=== PATIENT | male | born 1960 | race American Indian/Alaskan Native ===

== ENCOUNTER 2020-08-22 06:24 | Day surgery (SDC) | payer BC ==
[2020-08-22] MEDS ORDERED: SODIUM CHLORIDE 0.9% 500 ML 500 ML IV SCH (07:00)
[2020-08-22 07:13] LABS: Basophils % (Auto) 0.5 % (0.0-1.8); Eosinophils # (Auto) 0.1 K/mm3 (0.0-0.4); Eosinophils % (Auto) 1.6 % (0.0-4.3); Hematocrit 43.1 % (35.5-45.6); Hemoglobin 14.6 gm/dl (11.8-15.2); Lymphocytes # (Auto) 1.3 K/mm3 (1.2-5.4); Mean Corpuscular HGB Conc 34 % (32-34); Mean Corpuscular Volume 96 fl (84-94); Monocytes # (Auto) 0.6 K/mm3 (0.0-0.8); Monocytes % (Auto) 8.7 % (0.0-7.3); Platelet Count 262 K/mm3 (140-440); Red Cell Distribution Width 15.2 % (13.2-15.2)
[2020-08-22 07:22] LABS: INR 0.99 (0.87-1.13)
[2020-08-22 07:23] LABS: Partial Thromboplastin Time 27.3 Sec. (24.2-36.6)
[2020-08-22 07:26] LABS: Blood Urea Nitrogen 12 mg/dL (9-20); Calcium 8.9 mg/dL (8.4-10.2); Hemolysis Index 0
[2020-08-22 07:41] LABS: BUN/Creatinine Ratio 20
[2020-08-22] MEDS ORDERED: MIDAZOLAM 2 MG/2 ML INJ ONE (08:17)
[2020-08-22] MEDS ORDERED: HEPARIN 10,000 UNITS/10 ML VIAL ONE (08:17)
[2020-08-22] MEDS ORDERED: HEPARIN/NS 5000 UNIT/500ML 1,000 ML IR ONE (08:17)
[2020-08-22] MEDS ORDERED: fentaNYL 100 MCG/2 ML INJ ONE (08:18)
[2020-08-22] MEDS ORDERED: VERAPAMIL 5 MG/2 ML INJ ONE (08:18)
[2020-08-22] MEDS ORDERED: LIDOCAINE (2%) 20 MG/1 ML VIAL 20 ML MDV INFILTRATI ONE (08:18)
[2020-08-22] MEDS ORDERED: NITROGLYCERIN SYRINGE 3 ML ONE (08:18)
[2020-08-22] MEDS ORDERED: NITROGLYCERIN 600 MCG/3 ML SYRINGE ART-SHEATH ONE (09:17)
[2020-08-22] MEDS ORDERED: HYDROcodone/ACETAMINOPHEN 5-325 MG TAB PO PRN (09:53)
--- NOTE | 2020-08-22 09:55 | Short Stay Summary ---
Short Stay Documentation Date of service: 08/22/20 - History H&P: obtained from office - Allergies and Medications Current Medications: Allergies Inzjahz-Fmy-Onw Reductase Inhibitor Allergy (Verified 08/22/20 07:17) Headache Home Medications Medication Instructions Recorded Confirmed Last Taken Type Amlodipine Besylate/Benazepril 1 each PO DAILY 08/22/20 08/22/20 08/21/20 History [Amlodipine-Benazepril 10-40 mg] 1 tab Amoxicillin/Potassium Clav 1 each PO DAILY 08/22/20 08/22/20 Unknown History [Amox-Clav 250-125 mg Tablet] Aspirin [Aspirin BABY CHEW TAB] 81 mg PO DAILY 08/22/20 08/22/20 08/21/20 History 1 tab Dapagliflozin Propanediol [Farxiga] 1 tab PO DAILY 08/22/20 08/22/20 08/21/20 History 1 tab Docosahexanoic Acid [Algal [place]-3 200 mg PO DAILY 08/22/20 08/22/20 08/21/20 History Dha] 1 tab Gabapentin [Neurontin] 300 mg PO BID 08/22/20 08/22/20 08/21/20 History 1 tab Glimepiride [Amaryl] 4 mg PO QAM 08/22/20 08/22/20 08/21/20 History 1 tab Latanoprost 0.005% [Xalatan 0.005%] 1 drop OP QPM 08/22/20 08/22/20 08/21/20 History 2 drops Sitagliptin Phos/Metformin HCl 1 each PO DAILY 08/22/20 08/22/20 08/20/20 History [Janumet 50-1,000 mg Tablet] 1 tab cilostazoL [Pletal] 100 mg PO BID 08/22/20 08/22/20 08/21/20 History 1 tab gemfibroziL [Lopid] 600 mg PO BID 08/22/20 08/22/20 Unknown History hydroCHLOROthiazide [HCTZ] 25 mg PO QDAY 08/22/20 08/22/20 08/21/20 History 1 tab Active Medications Sodium Chloride (Nacl 0.9% 500 Ml) 500 mls @ 50 mls/hr IV DIRECT LISA Stop: 08/22/20 16:59 Last Admin: 08/22/20 07:58 Dose: 50 mls/hr Documented by: - Brief post op/procedure progress note Date of procedure: 08/22/20 Pre-op diagnosis: claudication and left foot pain Post-op diagnosis: same Procedure: see report Anesthesia: local Estimated blood loss: minimal Pathology: none - Disposition Condition at discharge: Good Disposition: DC-01 TO HOME OR SELFCARE - Discharge Diagnoses (1) PAD (peripheral artery disease) Status: Chronic (2) Smoker Status: Chronic (3) Hyperlipemia, mixed Status: Chronic (4) Hypertension Status: Chronic Qualifiers: Hypertension type: essential hypertension Qualified Code(s): I10 - Essential (primary) hypertension Short Stay Discharge Plan Activity: advance as tolerated Diet: low fat, low cholesterol Wound: keep clean and dry Special Instructions: smoking cessation Follow up with: RAIMUNDO ALFARO MD [Primary Care Provider] - 7 Days
[2020-08-22] MEDS ORDERED: traMADol 50 MG TAB PO PRN (10:30)
[2020-08-22 12:38] VITALS: BP 138/89
--- NOTE | 2020-08-22 13:28 | Cardiac Catherization Report ---
Peripheral angiogram DATE OF SERVICE: 08/22/2020 DATE OF SERVICE: 08/22/2020. INDICATION: The patient is a 60-year-old -[place] gentleman who is a smoker, hyperlipidemia, peripheral vascular disease with left foot pain at rest and with minimal exertion, is her for peripheral angiogram and iliac runoffs with a catheter placement. The patient was done with some moderate sedation, started 09:14, finished at 09:35, which 19 minutes of moderate sedation. DESCRIPTION OF PROCEDURE: Procedure was done via the right radial artery, sterile technique, local anesthesia. A 6 Australian radial sheath was inserted. A pigtail catheter was placed in the abdominal aorta and runoff was done which revealed bilateral renal arteries patent, distal abdominal aorta patent, bilateral common iliacs patent. Right internal and external iliacs patent, right SFA proximal patent, mid to distal calcified 50% lesions, popliteal patent, anterior tibial and posterior tibial both 100%, proximal peroneal calcified 70%, but medium caliber vessel. Left common iliac patent, left internal iliac patent, left external iliac calcified 80% lesion up at the [employer] PROJECT [employer]GER, proximal SFA focal calcified 50%, mid to distal patent and then becomes 80% calcified focal lesion. Popliteal diffuse disease with areas of 90%, proximal anterior tibial is 90%, distal is 100%, peroneal and posterior tibial both 100%. Placed a multipurpose catheter into the right iliac system, did multiple views confirming angiographic. Placed a multipurpose catheter in the left common iliac. Multiple views confirming angiographic result. Catheter was removed over a wire. A 6 Australian radial sheath was discontinued. Radial band applied. No hematoma. No bleeding. SUMMARY OF FINDINGS: 1. Bilateral renal arteries patent, distal abdominal aorta patent, bilateral common iliacs patent. Right external iliac, internal iliac and common femoral artery patent. Right SFA diffuse 50% anterior tibial and posterior tibial 100%. Right popliteal patent. Right peroneal proximal 70% calcified. Rest of vessels patent, medium caliber. 2. Left internal iliac and left distal external iliac and ENV[employer] PROJECT MANAGER has 80% lesion calcified, proximal SFA 50%. Profunda patent. Mid SFA patent. Distal focal 80%. Popliteal has diffuse disease with 90% with anterior tibial proximal 90%, distal 100% and both posterior tibial and peroneal 100%. Anterior tibial has a proximal 90% and distal 100%. 3. The patient will be referred for vascular surgery for possible local atherectomy versus shockwave. Discussed this with the patient in detail. TID: [id number] RECEIPT: [id number] RAQUEL/[facility] RICE
== END 2020-08-22 13:06 | disposition home or self-care (01) ==
LOC: CATHLABREC 06:24
PROVIDERS: ATTEND Internal Medicine
DX: I70.213 Atherosclerosis of native arteries of extremities with intermittent claudication, bilateral legs (principal); E11.51 Type 2 diabetes mellitus with diabetic peripheral angiopathy without gangrene; I10 Essential (primary) hypertension; E78.2 Mixed hyperlipidemia; F17.210 Nicotine dependence, cigarettes, uncomplicated; Z79.899 Other long term (current) drug therapy; Z88.8 Allergy status to other drugs, medicaments and biological substances; Z79.82 Long term (current) use of aspirin; Z98.890 Other specified postprocedural states
CPT/HCPCS: 36245; 36415; 75630; 80048; 85025; 85610; 85730; 99156; C1894; J1644; J2250; J3010; J7040; 36246; Q9967

== ENCOUNTER 2020-09-03 09:19 | Day surgery (SDC) | payer BC ==
[2020-09-03 17:49] VITALS: BP 152/90
== END 2020-09-03 18:02 | disposition home or self-care (01) ==
LOC: CATHLABREC 09:19
PROVIDERS: ATTEND Surgery Vascular Surgery
DX: I70.222 Atherosclerosis of native arteries of extremities with rest pain, left leg (principal); E11.51 Type 2 diabetes mellitus with diabetic peripheral angiopathy without gangrene; F17.210 Nicotine dependence, cigarettes, uncomplicated; E78.2 Mixed hyperlipidemia; I10 Essential (primary) hypertension; H40.9 Unspecified glaucoma; Z98.890 Other specified postprocedural states; Z79.899 Other long term (current) drug therapy; Z88.8 Allergy status to other drugs, medicaments and biological substances; Z83.3 Family history of diabetes mellitus; Z79.82 Long term (current) use of aspirin; Z82.49 Family history of ischemic heart disease and other diseases of the circulatory system
CPT/HCPCS: 36415; 37225; 37229; 75710; 76937; 80048; 85025; 85610; 85730; 99156; 99157; C1724; C1725; C1760; C1769; C1887; C2623; J0360; J1200; J1644; J2250; J3010; J7030; J7040; Q9967

== ENCOUNTER 2020-09-12 10:41 | Day surgery (SDC) | payer BC ==
[2020-09-12 11:31] LABS: Hematocrit 42.4 % (35.5-45.6); Hemoglobin 14.7 gm/dl (11.8-15.2); Mean Corpuscular HGB Conc 35 % (32-34); Mean Corpuscular Volume 97 fl (84-94); Platelet Count 287 K/mm3 (140-440); Red Cell Distribution Width 15.2 % (13.2-15.2)
[2020-09-12 11:41] LABS: INR 1.09 (0.87-1.13)
[2020-09-12 11:42] LABS: Partial Thromboplastin Time 32.1 Sec. (24.2-36.6)
[2020-09-12 11:48] LABS: Blood Urea Nitrogen 12 mg/dL (9-20); Calcium 9.7 mg/dL (8.4-10.2); Hemolysis Index 4
[2020-09-12 11:53] LABS: BUN/Creatinine Ratio 20
[2020-09-12] MEDS ORDERED: SODIUM CHLORIDE 0.9% 500 ML 500 ML IV SCH (12:00)
[2020-09-12] MEDS ORDERED: ceFAZolin/STERILE WATER 2 GM/20 ML SYRINGE IV NR (12:00)
[2020-09-12] MEDS ORDERED: HEPARIN/NS 5000 UNIT/500ML 1,000 ML IR ONE ×2 (12:14→12:16)
[2020-09-12] MEDS ORDERED: VERAPAMIL 5 MG/2 ML INJ ONE (12:15)
[2020-09-12] MEDS ORDERED: NITROGLYCERIN SYRINGE 3 ML ONE ×3 (12:15→16:43)
[2020-09-12] MEDS ORDERED: ceFAZolin/Water 2 GM/20 ML 2 GM/20 ML SYRINGE IV ONE (12:16)
[2020-09-12] MEDS: fentaNYL 100 MCG/2 ML INJ ONE ×4 (14:50→15:46)
[2020-09-12] MEDS: MIDAZOLAM 2 MG/2 ML INJ ONE ×4 (14:50→16:12)
[2020-09-12] MEDS: LIDOCAINE (2%) 20 MG/1 ML VIAL 20 ML MDV INFILTRATI ONE ×3 (14:56→15:12)
[2020-09-12] MEDS: diphenhydrAMINE 50 MG/ML VIAL ONE ×2 (15:15→15:25)
[2020-09-12] MEDS: HEPARIN 10,000 UNITS/10 ML VIAL ONE ×2 (15:24→16:13)
[2020-09-12] MEDS ORDERED: NITROGLYCERIN 600 MCG/3 ML SYRINGE ART-SHEATH ONE ×3 (16:02→16:45)
[2020-09-12] MEDS: HYDROmorphone 1 MG/1 ML INJ ONE ×2 (16:12→16:30)
[2020-09-12] MEDS ORDERED: ALTEPLASE 2 MG INJ ONE (16:41)
[2020-09-12] MEDS ORDERED: WATER FOR INJ Sterile (PF) 10 ML ONE (16:41)
--- NOTE | 2020-09-12 16:57 | Short Stay Summary ---
Short Stay Documentation Date of service: 09/12/20 Narrative H&P: See H&P - History H&P: obtained from office - Allergies and Medications Current Medications: Allergies Yhkgzjj-Rub-Bji Reductase Inhibitor Allergy (Verified 08/22/20 07:17) Headache Home Medications Medication Instructions Recorded Confirmed Last Taken Type Amlodipine Besylate/Benazepril 1 each PO DAILY 08/22/20 09/12/20 09/11/20 Hi story [Amlodipine-Benazepril 10-40 mg] Aspirin [Aspirin BABY CHEW TAB] 81 mg PO DAILY 08/22/20 09/12/20 09/11/20 History Dapagliflozin Propanediol [Farxiga] 1 tab PO DAILY 08/22/20 09/12/20 09/11/20 History Docosahexanoic Acid [Algal [place]-3 200 mg PO DAILY 08/22/20 09/12/20 09/11/20 History Dha] Gabapentin 300 mg PO BID 08/22/20 09/12/20 09/11/20 History Glimepiride [Amaryl] 4 mg PO QAM 08/22/20 09/12/20 09/11/20 History Latanoprost 0.005% 1 drop OP QPM 08/22/20 09/12/20 09/11/20 History Sitagliptin Phos/Metformin HCl 1 each PO DAILY 08/22/20 09/12/20 09/11/20 Histor y [Janumet 50-1,000 mg Tablet] gemfibroziL [Lopid] 600 mg PO BID 08/22/20 09/12/20 09/11/20 History hydroCHLOROthiazide [HCTZ] 25 mg PO QDAY 08/22/20 09/12/20 09/11/20 History Clopidogrel [Plavix] 75 mg PO QDAY #90 tablet 09/03/20 09/12/20 09/11/20 Rx Rivaroxaban [Xarelto] 2.5 mg PO BID #180 tablet 09/03/20 09/12/20 09/11/20 Rx Active Medications Cefazolin Sodium (Cefazolin/Sterile Water 2 Gm/20 Ml Syringe) 2 gm IV PREOP NR Stop: 09/12/20 20:00 Last Admin: 09/12/20 14:50 Dose: 2 gm Documented by: Sodium Chloride (Nacl 0.9% 500 Ml) 500 mls @ 50 mls/hr IV DIRECT LISA Last Admin: 09/12/20 11:42 Dose: 50 mls/hr Documented by: - Brief post op/procedure progress note Date of procedure: 09/12/20 Pre-op diagnosis: Peripheral Vascular Disease with Left Leg Critical Limb Ischemia Post-op diagnosis: same Procedure: 1. Ultrasound-Guided Access Right Common Femoral Artery 2. Diagnostic Left Lower Extremity Angiogram (The Patient Had a Clinical Change) 3. Angioplasty of Left Anterior Tibial Artery and Medial Plantar Artery with 2.0 x 100 Angiosculpt Balloon and 3.0-2.5 x 210 Nanocross Balloon 4. Injection of a total of 1800 mcg of Nitroglycerin and 4 mg of TPA into the Left Foot 5. Closure of Right Femoral Arteriotomy with 6 Sami Angio-Seal 6. Radiologic Supervision with Interpretation 7. Monitored Moderate Sedation (Total Anesthesia Time: 120 Minutes) Anesthesia: other (Monitored Moderate Sedation) Surgeon: LUKASZ JARAMILLO Estimated blood loss: minimal Pathology: none Condition: stable - Disposition Condition at discharge: Good Disposition: DC-01 TO HOME OR SELFCARE Short Stay Discharge Plan Activity: other (No strenuous activity for 48 hours) Wound: remove dressing (48 hours), other (Okay to shower and wash the wound with soap and water but do not soak in water for 2 weeks.) Follow up with: LUKASZ JARAMILLO MD [Staff Physician] - 14 Days Prescriptions: Oxycodone HCl/Acetaminophen [Percocet 7.5/325 mg] 1 each PO Q6HR PRN #30 tablet PRN Reason: Pain cilostazoL [Pletal] 100 mg PO BID #180 tablet Pantoprazole [Protonix] 40 mg PO QDAY #90 tablet
--- NOTE | 2020-09-12 17:01 | Operative Report ---
Operative Report Operative Report: Date of Procedure: 09/12/2020 Pre-operative Diagnosis: Peripheral Vascular Disease with Left Lower Extremity C ritical Limb Ischemia Post-operative Diagnosis: Same Procedure(s): 1. Ultrasound-Guided Access Right Common Femoral Artery 2. Diagnostic Left Lower Extremity Angiogram (The Patient Had a Clinical Change) 3. Angioplasty of Left Anterior Tibial Artery and Medial Plantar Artery with 2.0 x 100 Angiosculpt Balloon and 3.0-2.5 x 210 Nanocross Balloon 4. Injection of a total of 1800 mcg of Nitroglycerin and 4 mg of TPA into the Left Foot 5. Closure of Right Femoral Arteriotomy with 6 [place] Angio-Seal 6. Radiologic Supervision with Interpretation 7. Monitored Moderate Sedation (Total Anesthesia Time: 120 Minutes) Surgeon: Benedicto Osman M.D. 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 Yet previous intervention of his left foot with temporary relief for approximately 1 week however his symptoms of rest pain returned. The patient continues to smoke which is likely contributed to it. He is in need of a diagnostic angiogram and possible further intervention. He was given the risk, benefits, and alternative procedures and consented to the procedure. Angiographic Findings: The diagnostic left lower extremity angiogram revealed that the left common iliac artery, hypogastric artery, and external iliac artery were patent without evidence of flow-limiting stenosis. There was a heavily calcified plaque within the common femoral artery however this was not flow-limiting. The SFA and profunda appeared to be patent without evidence of significant flow-limiting stenosis. The popliteal artery was patent without evidence of significant flow- limiting stenosis. There was one-vessel runoff to the anterior tibial artery which was patent to the level of the medial malleolus were occluded with what appeared to be a small amount of thrombus within the distal artery. There was no evidence of reconstitution in the dorsalis pedis artery. The posterior tibial artery was occluded in the foot as well. Flow within the foot was provided through small collateral branches. After intervention the anterior tibial artery was patent with flow into the medial plantar artery with approximately 30% residual stenosis in the mid foot. The artery did provide significant collateral flow into the entire foot with some reflux of contrast into what appeared to be a segment of the dorsalis pedis artery. Description of Procedure: The patient was brought to the Elevator Starter and laid in supine position. After a timeout was performed his right groin and left foot were prepped and draped in normal sterile fashion. Initially I made attempts to access the posterior tibial artery, near the medial malleolus, in retrograde fashion however this was unsuccessful. I then decided to treat the patient and antegrade fashion. Ultrasound was used to identify the right common femoral artery and confirm patency. Once patency was confirmed I anesthetized the overlying skin and soft tissue with lidocaine. I made a small stab stab incision with an 11 blade and then used a curved hemostat with ultrasound guidance to bluntly dissect down to the anterior surface of the right common femoral artery. An 18-gauge access needle was used ultrasound guidance into the right common femoral artery and a 0.035 Bentson wire was advanced to the aorta. I then removed the needle and placed a 5 [place] sheath by Seldinger technique. An Omni Flush catheter was then advanced into the aorta and the catheter and wire were advanced up and over the bifurcation and a diagnostic left lower extremity angiogram was performed with the previously described findings. I advanced a 0.035 advantage wire into the below-knee popliteal artery and then exchanged the 5 Bol[place]ian sheath for a 6 [place]ian 90 cm destination sheath with the previously described findings. I made attempts to recannulate the occluded posterior tibial artery without success so I advanced a Navicross catheter and 0.018 V18 wire into the distal anterior tibial artery. I attempted to recannulate the dorsalis pedis artery however this perforated so I advanced the catheter and wire into the medial plantar artery and was eventually able to advance the wire into the distal foot. I exchanged the V 18 wire for 0.014 Choice PT wire and then performed angioplasty of the medial plantar artery and distal anterior tibial artery with a 2.0 x 100 Angiosculpt Balloon. I followed this with angioplasty of the arteries with the 3.0-2.5 x 210 Nanocross Balloon. This resulted in perforation of the distal anterior tibial artery which was treated with inflation of the balloon for approximately 5 minutes which controlled the bleeding. There was also some evidence of thrombus in the distal anterior tibial artery which I treated with 4 mg of TPA. I also injected a total of 1800 mcg of nitroglycerin into the foot to break any spasm. The final angiogram revealed there was flow through the distal anterior tibial artery and into the foot through the medial plantar artery and multiple collaterals. The flow was somewhat sluggish however secondary to approximately 30% residual stenosis in the medial plantar artery however the artery was patent. At this point there is no additional arteries that could be open to provide flow to the patient's foot. I removed the Choice PT wire and pulled the sheath back into the right external iliac artery. I advanced the Bentson wire to the aorta and after removing the sheath used a 6 [place] Angio-Seal for closure. A sterile dressing was then applied to the right groin entry site and the patient was transported to the recovery area in stable condition.
[2020-09-12] MEDS ORDERED: oxyCODONE /ACETAMINOPHEN 5-325MG TAB PO PRN (17:02)
[2020-09-12] MEDS ORDERED: CILOSTAZOL 100 MG TAB PO ONE (18:00)
[2020-09-12 18:36] VITALS: BP 123/71
== END 2020-09-12 18:54 | disposition home or self-care (01) ==
LOC: CATHLABREC 10:41
PROVIDERS: ATTEND Surgery Vascular Surgery
DX: I70.222 Atherosclerosis of native arteries of extremities with rest pain, left leg (principal); E11.51 Type 2 diabetes mellitus with diabetic peripheral angiopathy without gangrene; F17.210 Nicotine dependence, cigarettes, uncomplicated; E78.2 Mixed hyperlipidemia; I10 Essential (primary) hypertension; H40.9 Unspecified glaucoma; Z88.8 Allergy status to other drugs, medicaments and biological substances; Z79.899 Other long term (current) drug therapy; Z98.890 Other specified postprocedural states; Z82.49 Family history of ischemic heart disease and other diseases of the circulatory system
CPT/HCPCS: 36415; 37228; 76937; 80048; 85027; 85610; 85730; 99156; 99157; C1725; C1760; C1769; C1887; J0690; J1170; J1200; J1644; J2250; J2997; J3010; J7040; Q9967

== ENCOUNTER 2021-01-07 09:17 | Inpatient (IN) | payer BC ==
[~2021-01-07 09:17] MED LIST: ACETAMINOPHEN 500 MG TAB PO SCH; GABAPENTIN 300 MG CAP PO NR; ceFAZolin/STERILE WATER 2 GM/20 ML SYRINGE IV NR
[2021-01-07 10:44] LABS: Hematocrit 24.6 % (35.5-45.6); Mean Corpuscular HGB Conc 33 % (32-34); Mean Corpuscular Volume 79 fl (84-94); Platelet Count 511 K/mm3 (140-440); Red Blood Count 3.12 M/mm3 (3.65-5.03); Red Cell Distribution Width 18.5 % (13.2-15.2)
[2021-01-07 10:59] LABS: Blood Urea Nitrogen 7 mg/dL (9-20); Calcium 9.6 mg/dL (8.4-10.2); Hemolysis Index 27
[2021-01-07] MEDS: LACTATED RINGERS 1,000 ML IV SCH ×2 (11:00→19:18)
[2021-01-07 11:03] LABS: BUN/Creatinine Ratio 23
[2021-01-07] MEDS: MIDAZOLAM 2 MG/2 ML INJ IV NR ×2 (11:03→12:11)
[2021-01-07] MEDS: HYDROmorphone 1 MG/1 ML INJ IV SCH ×3 (11:05→19:17)
--- NOTE | 2021-01-07 11:05 | Anesthesia Consultation ---
Anesthesia Consult and Med Hx Date of service: 01/07/21 - Airway Anesthetic Teeth Evaluation: Edentulous ROM Head & Neck: Adequate Mental/Hyoid Distance: Adequate Mallampati Class: Class II Intubation Access Assessment: Probably Good - Pre-Operative Health Status ASA Pre-Surgery Classification: ASA3 Proposed Anesthetic Plan: General - Pulmonary Hx Smoking: Yes (1-2 cigs/day, none in the last 1 week) Hx Respiratory Symptoms: No Hx Sleep Apnea: No - Cardiovascular System Hx Hypertension: Yes (took amlodipine/benazepril today) Hx Heart Attack/AMI: No Hx Percutaneous Transluminal Coronary Angioplasty (PTCA): No Hx Cardia Arrhythmia: No Hx Peripheral Vascular Disease: Yes (last dose xarelto 01/06/21) - Central Nervous System CVA: No - Endocrine Hx Renal Disease: No Hx Liver Disease: No Hx Non-Insulin Dependent Diabetes: Yes Hx Thyroid Disease: No - Hematic Hx Anemia: Yes - Other Systems Hx Obesity: No - Additional Comments Anesthesia Medical History Comments: No prior GA. No FHx anesthetic complications. Had ST and TTE 05/2020 which showed normal EF and no ischemia.
--- NOTE | 2021-01-07 11:06 | Anesthesia Day of Surgery ---
Anesthesia Day of Surgery - Day of Surgery Patient Examined: Yes Patient H&P Reviewed: Yes Patient is NPO: Yes
[2021-01-07] MEDS ORDERED: ONDANSETRON 4 MG/2 ML INJ IV PRN (11:30)
[2021-01-07] MEDS ORDERED: HYDROmorphone 1 MG/1 ML INJ IV PRN ×2 (11:30→15:59)
[2021-01-07] MEDS ORDERED: BUPIVACAINE/PF (0.25%) 2.5 MG/ML 30 ML VIAL INFILTRATI ONE ×2 (14:10→15:13)
[2021-01-07] MEDS ORDERED: LIDOCAINE MPF (2%) 20 MG/1 ML VIAL 5 ML ONE (14:13)
[2021-01-07] MEDS ORDERED: fentaNYL 100 MCG/2 ML INJ ONE (14:14)
[2021-01-07] MEDS ORDERED: propofoL 200 MG/20 ML VIAL IV ONE (14:14)
[2021-01-07] MEDS ORDERED: SODIUM CHLORIDE 0.9% IRR 1,500 ML BOTTLE IR ONE (15:13)
[2021-01-07] MEDS ORDERED: HYDROmorphone 1 MG/1 ML INJ ONE (15:13)
[2021-01-07] MEDS ORDERED: KETAMINE/STERILE WATER 50 MG/ML SYRINGE ONE (15:19)
[2021-01-07] MEDS ORDERED: ONDANSETRON 4 MG/2 ML INJ ONE (15:57)
[2021-01-07] MEDS ORDERED: ACETAMINOPHEN 325 MG TAB PO PRN (15:59)
[2021-01-07] MEDS ORDERED: KETOROLAC 30 MG/1 ML INJ IV PRN (15:59)
--- NOTE | 2021-01-07 16:25 | Operative Report ---
Operative Report Operative Report: Date of procedure: 01/07/2021 Pre-operative diagnosis: Peripheral Vascular Disease with Left Lower Extremity G lorena Post-operative diagnosis: Same Procedure(s): Left Below Knee Amputation Surgeon: Benedicto Osman MD Health Plan Advisor: None Anesthesia: General Endotracheal Anesthesia EBL: 100 mL Counts: Correct Complications: None Condition: Stable Findings: All remaining tissue was healthy and viable Specimen: Left Leg Sent to Pathology Indication: The patient is a 60-year-old male with a history of peripheral vascular disease and tobacco abuse who has had endovascular intervention on his left lower extremity to treat critical limb ischemia. Despite intervention he continued to smoke and had deterioration of his ischemia which progressed to a nonsalvageable foot. He is in need of a left below-knee amputation to treat his rest pain as well as gangrene of his foot. He was given the risk, benefits, and alternative procedures and consented to the procedure. Description of Procedure: The patient was brought to the operating room and laid in supine position after general endotracheal anesthesia the patient's left leg was prepped and draped in normal sterile fashion. A transverse incision was then created approximately 3 fingerbreadths below the tibial tuberosity and carried the incision down distally to create a posterior flap, using a 10 blade. Electrocautery was then used to divide the muscle down to the tibia and then down to the fibula. I then used a periosteal elevator to elevate the periosteum on the tibia approximately 2 cm above the incision and then I used an oscillating saw to divide the tibia. I then used a double-action bone cutter to divide the fibula approximately 2 cm above the tibia. I divided the remainder of the soft tissue using electrocautery and passed the specimen off. I identified the neurovascular bundle and ligated both the vein and artery using 0 silk stick ties. I then used 0 silk to perform high ligation of the nerve. I achieved hemostasis using electrocautery and direct pressure. Once hemostasis was achieved I used a rasps to smooth the tibia and then copiously irrigated the wound with saline. I anesthetized the wound using 0.5% Marcaine. I then closed the wound in 2 layers using 0 Vicryl to reapproximate the fascia and vicki to close the skin. I dressed the wound with Xeroform gauze, fluffs, ABDs, Kerlix, and an Spenser bandage. I placed an appropriately sized knee immobilizer. The patient tolerated the procedure well all sponge needle and instrument counts were the patient was taken to recovery in stable condition.
--- NOTE | 2021-01-07 16:53 | Post Anesthesia Evaluation ---
- Post Anesthesia Evaluation Patient Participated: Yes Airway Patent: Yes Stable Respiratory Function: Yes Nausea/Vomiting: No Temp > 96.8F: Yes Pain Manageable: Yes Adequeate Hydration: Yes Anesthesia Complications: No
[2021-01-07] MEDS: INSULIN LISPRO 100 UNIT/ML SUB-Q SCH ×2 (17:30→22:34)
[2021-01-07] MEDS: metFORMIN 500 MG TAB PO SCH (20:03)
[2021-01-07] MEDS ORDERED: RIVAROXABAN 2.5 MG PO SCH (22:00)
[2021-01-07] MEDS: RIVAROXABAN 10 MG TAB PO SCH (22:33)
[2021-01-07] MEDS: GEMFIBROZIL 600 MG TAB PO SCH (22:33)
[2021-01-07] MEDS: GABAPENTIN 300 MG CAP PO SCH (22:34)
[2021-01-07] MEDS: CILOSTAZOL 100 MG TAB PO SCH (22:34)
[2021-01-07] MEDS: oxyCODONE /ACETAMINOPHEN 5-325MG TAB PO PRN (22:35)
[2021-01-07] MEDS: LATANOPROST 0.005% OPHTH SOLN 2.5 ML OU SCH (22:40)
[2021-01-07] MEDS: ceFAZolin/NS 1 GM/50 ML 1 GM/50 ML BAG IV SCH (22:58)
[2021-01-08 06:24] LABS: Hematocrit 25.1 % (35.5-45.6); Hemoglobin 7.9 gm/dl (11.8-15.2)
[2021-01-08] MEDS: ceFAZolin/NS 1 GM/50 ML 1 GM/50 ML BAG IV SCH (06:24)
[2021-01-08] MEDS: oxyCODONE /ACETAMINOPHEN 5-325MG TAB PO PRN ×3 (06:29→21:37)
[2021-01-08 06:57] LABS: Blood Urea Nitrogen 6 mg/dL (9-20); Hemolysis Index 8
[2021-01-08 07:27] LABS: BUN/Creatinine Ratio 20
[2021-01-08] MEDS: INSULIN LISPRO 100 UNIT/ML SUB-Q SCH ×4 (08:00→21:38)
[2021-01-08] MEDS ORDERED: NON-FORMULARY EACH (Amlodipine Besylate/Benazepril [Amlodipine-Benazepril 10-40 Mg] 1 EACH PO SCH (10:00)
[2021-01-08] MEDS ORDERED: DOCOSAHEXANOIC ACID 200 MG PO SCH (10:00)
[2021-01-08] MEDS ORDERED: NON-FORMULARY EACH (Dapagliflozin Propanediol [Farxiga] 10 MG Tablet) PO SCH (10:00)
[2021-01-08] MEDS ORDERED: NON-FORMULARY EACH (Sitagliptin Phos/Metformin Hcl [Janumet 50-1,000 Mg Tablet] 1 EACH Tab PO SCH (10:00)
--- NOTE | 2021-01-08 11:09 | Consultation ---
Medications and Allergies Allergies Allergy/AdvReac Type Severity Reaction Status Date / Time Lkdlgrg-Glk-Vqm Reductase Allergy Headache Verified 01/06/21 14:52 Inhibitor Home Medications Medication Instructions Recorded Confirmed Last Taken Type Amlodipine Besylate/Benazepril 1 each PO DAILY 08/22/20 01/07/21 01/07/21 06:30 History [Amlodipine-Benazepril 10-40 mg] Dapagliflozin Propanediol [Farxiga] 1 tab PO DAILY 08/22/20 01/06/21 01/06/21 History Docosahexanoic Acid [Algal [place]-3 200 mg PO DAILY 08/22/20 01/06/21 01/06/21 History Dha] Gabapentin 300 mg PO BID 08/22/20 01/06/21 01/06/21 History Glimepiride [Amaryl] 4 mg PO QAM 08/22/20 01/06/21 01/06/21 History Latanoprost 0.005% 1 drop OP QPM 08/22/20 01/06/21 01/06/21 History Sitagliptin Phos/Metformin HCl 1 each PO DAILY 08/22/20 01/07/21 01/05/21 History [Janumet 50-1,000 mg Tablet] gemfibroziL [Lopid] 600 mg PO BID 08/22/20 01/06/21 01/06/21 History hydroCHLOROthiazide [HCTZ] 25 mg PO QDAY 08/22/20 01/06/21 01/06/21 History Clopidogrel [Plavix] 75 mg PO QDAY #90 tablet 09/03/20 01/07/21 01/06/21 Rx Rivaroxaban [Xarelto] 2.5 mg PO BID #180 tablet 09/03/20 01/07/21 01/06/21 Rx Oxycodone HCl/Acetaminophen 1 each PO Q6HR PRN #30 tablet 09/12/20 01/06/21 01/06/21 Rx [Percocet 7.5/325 mg] Pantoprazole [Protonix] 40 mg PO QDAY #90 tablet 09/12/20 01/06/21 01/06/21 Rx cilostazoL [Pletal] 100 mg PO BID #180 tablet 09/12/20 01/06/21 01/06/21 Rx Active Meds: Active Medications Acetaminophen (Acetaminophen 325 Mg Tab) 650 mg PO Q4H PRN PRN Reason: Pain MILD(1-3)/Fever >100.5/CASTILLO Amlodipine Besylate (Amlodipine 10 Mg Tab) 10 mg PO DAILY [facility] Cilostazol (Cilostazol 100 Mg Tab) 100 mg PO BID [facility] Last Admin: 01/07/21 22:34 Dose: 100 mg Documented by: Clopidogrel Bisulfate (Clopidogrel 75 Mg Tab) 75 mg PO QDAY [facility] Gabapentin (Gabapentin 300 Mg Cap) 300 mg PO BID [facility] Last Admin: 01/07/21 22:34 Dose: 300 mg Documented by: Gemfibrozil (Gemfibrozil 600 Mg Tab) 600 mg PO BID [facility] Last Admin: 01/07/21 22:33 Dose: 600 mg Documented by: Glimepiride (Glimepiride 4 Mg Tab) 4 mg PO QAM [facility] Hydrochlorothiazide (Hydrochlorothiazide 25 Mg Tab) 25 mg PO QDAY [facility] Hydromorphone HCl (Hydromorphone 1 Mg/1 Ml Inj) 0.5 mg IV Q3H PRN PRN Reason: Pain , Severe (7-10) Insulin Human Lispro (Insulin Lispro 100 Unit/Ml) 0 unit SUB-Q ACHS [facility]; Protocol Last Admin: 01/07/21 22:34 Dose: Not Given Documented by: Ketorolac Tromethamine (Ketorolac 30 Mg/1 Ml Inj) 30 mg IV Q6H PRN PRN Reason: Pain, Moderate (4-6) Stop: 01/12/21 15:58 Latanoprost (Latanoprost 0.005% Ophth Soln 2.5 Ml) 1 drops OU QPM [facility] Last Admin: 01/07/21 22:40 Dose: Not Given Documented by: Linagliptin (Linagliptin 5 Mg Tab) 5 mg PO QDAY [facility] Lisinopril (Lisinopril 40 Mg Tab) 40 mg PO QDAY [facility] Metformin HCl (Metformin 500 Mg Tab) 500 mg PO BIDDIAB [facility] Last Admin: 01/07/21 20:03 Dose: Not Given Documented by: Miscellaneous Medication (Dapagliflozin Propanediol [Farxiga]) 1 tab PO DAILY [facility] Oxycodone/Acetaminophen (Oxycodone /Acetaminophen 5-325mg Tab) 2 tab PO Q6H PRN PRN Reason: Pain, Moderate (4-6) Last Admin: 01/08/21 06:29 Dose: 2 tab Documented by: Pantoprazole Sodium (Pantoprazole 40 Mg Tab) 40 mg PO QDAY [facility] Rivaroxaban (Rivaroxaban 10 Mg Tab) 2.5 mg PO BID [facility] Last Admin: 01/07/21 22:33 Dose: 2.5 mg Documented by: Exam - Constitutional Vitals: Temp Pulse Resp BP Pulse Ox 98.2 F 109 H 18 152/78 100 01/08/21 07:50 01/08/21 07:50 01/08/21 07:50 01/08/21 07:50 01/08/21 07:50 Results - Labs CBC & Chem 7: 01/08/21 04:50 01/08/21 04:50 Labs: Abnormal lab results 01/07/21 01/07/21 01/08/21 Range/Units 16:15 21:41 04:50 Hgb 7.9 L (11.8-15.2) gm/dl Hct 25.1 L (35.5-45.6) % Sodium (137-145) mmol/L Potassium (3.6-5.0) mmol/L Chloride (98-107) mmol/L BUN (9-20) mg/dL Creatinine (0.8-1.3) mg/dL Glucose (75-100) mg/dL POC Glucose 128 H 138 H (70-105) mg/dL 01/08/21 01/08/21 Range/Units 04:50 07:48 Hgb (11.8-15.2) gm/dl Hct (35.5-45.6) % Sodium 136 L (137-145) mmol/L Potassium 3.2 L (3.6-5.0) mmol/L Chloride 96.8 L (98-107) mmol/L BUN 6 L (9-20) mg/dL Creatinine 0.3 L (0.8-1.3) mg/dL Glucose 178 H (75-100) mg/dL POC Glucose 171 H (70-105) mg/dL
[2021-01-08] MEDS: hydroCHLOROthiazide 25 MG TAB PO SCH (11:37)
[2021-01-08] MEDS: GEMFIBROZIL 600 MG TAB PO SCH ×2 (11:38→21:36)
[2021-01-08] MEDS: LINAGLIPTIN 5 MG TAB PO SCH (11:38)
[2021-01-08] MEDS: GLIMEPIRIDE 4 MG TAB PO SCH (11:38)
[2021-01-08] MEDS: LISINOPRIL 40 MG TAB PO SCH (11:39)
[2021-01-08] MEDS: PANTOPRAZOLE 40 MG TAB PO SCH (11:39)
[2021-01-08] MEDS: metFORMIN 500 MG TAB PO SCH ×2 (11:40→16:11)
[2021-01-08] MEDS: amLODIPine 10 MG TAB PO SCH (11:41)
[2021-01-08] MEDS: CLOPIDOGREL 75 MG TAB PO SCH (11:41)
[2021-01-08] MEDS: RIVAROXABAN 10 MG TAB PO SCH ×2 (11:42→21:38)
[2021-01-08] MEDS: GABAPENTIN 300 MG CAP PO SCH ×2 (12:05→21:36)
--- NOTE | 2021-01-08 12:19 | Progress Note ---
Assessment and Plan Patient will need to be set up for home physical therapy and home wound care for dressing changes. Anticipate discharge potentially tomorrow Subjective Date of service: 01/08/21 Principal diagnosis: Peripheral vascular disease with gangrene Interval history: Patient with a history of peripheral vascular disease who is now status post bel ow the knee amputation on the left. At time of exam, the patient is being fitted for a Ampushield and knee immobilizer. Patient with no significant postsurgical complaints. Worked with physical therapy this morning. Objective - Constitutional Vitals: Vital Signs - 12hr 01/08/21 01/08/21 01/08/21 03:42 07:50 11:39 Temperature 98.6 F 98.2 F Pulse Rate 109 H 109 H 75 Respiratory 18 18 Rate Blood Pressure 158/86 152/78 O2 Sat by Pulse 99 100 Oximetry General appearance: Present: no acute distress - EENT Eyes: EOM intact ENT: hearing intact - Neck Neck: supple, normal ROM - Respiratory Respiratory effort: normal Extremities: abnormal - Gastrointestinal General gastrointestinal: Present: deferred - Genitourinary Male genitourinary: deferred - Psychiatric Psychiatric: appropriate mood/affect, cooperative - Labs CBC & Chem 7: 01/08/21 04:50 01/08/21 04:50 Labs: Abnormal lab results 01/07/21 01/07/21 01/08/21 Range/Units 16:15 21:41 04:50 Hgb 7.9 L (11.8-15.2) gm/dl Hct 25.1 L (35.5-45.6) % Sodium (137-145) mmol/L Potassium (3.6-5.0) mmol/L Chloride (98-107) mmol/L BUN (9-20) mg/dL Creatinine (0.8-1.3) mg/dL Glucose (75-100) mg/dL POC Glucose 128 H 138 H (70-105) mg/dL 01/08/21 01/08/21 01/08/21 Range/Units 04:50 07:48 12:08 Hgb (11.8-15.2) gm/dl Hct (35.5-45.6) % Sodium 136 L (137-145) mmol/L Potassium 3.2 L (3.6-5.0) mmol/L Chloride 96.8 L (98-107) mmol/L BUN 6 L (9-20) mg/dL Creatinine 0.3 L (0.8-1.3) mg/dL Glucose 178 H (75-100) mg/dL POC Glucose 171 H 170 H (70-105) mg/dL Medications & Allergies - Medications Allergies/Adverse Reactions: Allergies Etsbqyt-Gqj-Hyn Reductase Inhibitor Allergy (Verified 01/06/21 14:52) Headache Home Medications: Home Medications Medication Instructions Recorded Confirmed Last Taken Type Amlodipine Besylate/Benazepril 1 each PO DAILY 08/22/20 01/07/21 01/07/21 06:30 History [Amlodipine-Benazepril 10-40 mg] Dapagliflozin Propanediol [Farxiga] 1 tab PO DAILY 08/22/20 01/06/21 01/06/21 History Docosahexanoic Acid [Algal [place]-3 200 mg PO DAILY 08/22/20 01/06/21 01/06/21 History Dha] Gabapentin 300 mg PO BID 08/22/20 01/06/21 01/06/21 History Glimepiride [Amaryl] 4 mg PO QAM 08/22/20 01/06/21 01/06/21 History Latanoprost 0.005% 1 drop OP QPM 08/22/20 01/06/21 01/06/21 History Sitagliptin Phos/Metformin HCl 1 each PO DAILY 08/22/20 01/07/21 01/05/21 History [Janumet 50-1,000 mg Tablet] gemfibroziL [Lopid] 600 mg PO BID 08/22/20 01/06/21 01/06/21 History hydroCHLOROthiazide [HCTZ] 25 mg PO QDAY 08/22/20 01/06/21 01/06/21 History Clopidogrel [Plavix] 75 mg PO QDAY #90 tablet 09/03/20 01/07/21 01/06/21 Rx Rivaroxaban [Xarelto] 2.5 mg PO BID #180 tablet 09/03/20 01/07/21 01/06/21 Rx Oxycodone HCl/Acetaminophen 1 each PO Q6HR PRN #30 tablet 09/12/20 01/06/21 01/06/21 Rx [Percocet 7.5/325 mg] Pantoprazole [Protonix] 40 mg PO QDAY #90 tablet 09/12/20 01/06/21 01/06/21 Rx cilostazoL [Pletal] 100 mg PO BID #180 tablet 09/12/20 01/06/21 01/06/21 Rx Active Medications: Generic Name Dose Route Start Last Admin Trade Name Freq PRN Reason Stop Dose Admin Acetaminophen 650 mg 01/07/21 15:59 Acetaminophen 325 Mg Tab PO Q4H PRN Pain MILD(1-3)/Fever >100.5/CASTILLO Amlodipine Besylate 10 mg 01/08/21 10:00 01/08/21 11:41 Amlodipine 10 Mg Tab PO 10 mg DAILY LISA Administration Cilostazol 100 mg 01/07/21 22:00 01/07/21 22:34 Cilostazol 100 Mg Tab PO 100 mg BID LISA Administration Clopidogrel Bisulfate 75 mg 01/08/21 10:00 01/08/21 11:41 Clopidogrel 75 Mg Tab PO 75 mg QDAY LISA Administration Gabapentin 300 mg 01/07/21 22:00 01/08/21 12:05 Gabapentin 300 Mg Cap PO 300 mg BID LISA Administration Gemfibrozil 600 mg 01/07/21 22:00 01/08/21 11:38 Gemfibrozil 600 Mg Tab PO 600 mg BID LISA Administration Glimepiride 4 mg 01/08/21 10:00 01/08/21 11:38 Glimepiride 4 Mg Tab PO 4 mg QAM LISA Administration Hydrochlorothiazide 25 mg 01/08/21 10:00 01/08/21 11:37 Hydrochlorothiazide 25 Mg Tab PO 25 mg QDAY LISA Administration Hydromorphone HCl 0.5 mg 01/07/21 15:59 Hydromorphone 1 Mg/1 Ml Inj IV Q3H PRN Pain , Severe (7-10) Insulin Human Lispro 0 unit 01/07/21 16:30 01/08/21 12:09 Insulin Lispro 100 Unit/Ml SUB-Q Not Given ACHS [facility] Protocol Ketorolac Tromethamine 30 mg 01/07/21 15:59 Ketorolac 30 Mg/1 Ml Inj IV 01/12/21 15:58 Q6H PRN Pain, Moderate (4-6) Latanoprost 1 drops 01/07/21 18:00 01/07/21 22:40 Latanoprost 0.005% Ophth Soln 2.5 Ml OU Not Given QPM LISA Linagliptin 5 mg 01/08/21 10:00 01/08/21 11:38 Linagliptin 5 Mg Tab PO 5 mg QDAY LISA Administration Lisinopril 40 mg 01/08/21 10:00 01/08/21 11:39 Lisinopril 40 Mg Tab PO 40 mg QDAY LISA Administration Metformin HCl 500 mg 01/07/21 17:00 01/08/21 11:40 Metformin 500 Mg Tab PO 500 mg BIDDIAB LISA Administration Miscellaneous Medication 1 tab 01/08/21 10:00 Dapagliflozin Propanediol [Farxiga] PO DAILY LISA Oxycodone/Acetaminophen 2 tab 01/07/21 15:59 01/08/21 06:29 Oxycodone /Acetaminophen 5-325mg Tab PO 2 tab Q6H PRN Administration Pain, Moderate (4-6) Pantoprazole Sodium 40 mg 01/08/21 10:00 01/08/21 11:39 Pantoprazole 40 Mg Tab PO 40 mg QDAY LISA Administration Rivaroxaban 2.5 mg 01/07/21 22:00 01/08/21 11:42 Rivaroxaban 10 Mg Tab PO 2.5 mg BID LISA Administration
[2021-01-08] MEDS: CILOSTAZOL 100 MG TAB PO SCH ×2 (12:46→21:36)
[2021-01-08] MEDS: LATANOPROST 0.005% OPHTH SOLN 2.5 ML OU SCH (19:47)
--- NOTE | 2021-01-09 08:34 | Progress Note ---
Assessment and Plan Assessment and plan: Peripheral vascular disease with left lower extremity gangrene. s/p left BKA Hypertension Hyperlipidemia Diabetes mellitus type 2. Diabetic neuropathy Tobacco abuse 01/09/2021. Patient has a history of peripheral vascular disease and tobacco abuse who has had endovascular intervention on his left lower extremity to treat critical limb ischemia. Despite intervention he continued to smoke and had deterioration of his ischemia which progressed to a nonsalvageable foot. Patient underwent left BKA on 01/07/2021. Continue antihypertensive medications. Continue diabetic medications, SSRI and Accu-Cheks. Continue anticoagulation per vascular surgery History Interval history: No new issues overnight Hospitalist Physical - Constitutional Vitals: Temp Pulse Resp BP Pulse Ox 98.8 F 116 H 20 159/82 99 01/09/21 04:18 01/09/21 04:18 01/09/21 04:18 01/09/21 04:18 01/09/21 04:18 General appearance: Present: no acute distress - EENT Eyes: Present: PERRL, EOM intact ENT: hearing intact, clear oral mucosa, dentition normal - Neck Neck: Present: supple, normal ROM - Respiratory Respiratory effort: normal Respiratory: bilateral: CTA - Cardiovascular Rhythm: regular Heart Sounds: Present: S1 & S2. Absent: gallop, rub - Extremities Extremities: no ischemia, No edema, Full ROM - Abdominal General gastrointestinal: soft, non-tender, non-distended, normal bowel sounds - Integumentary Integumentary: Present: clear, warm, dry - Neurologic Neurologic: CNII-XII intact, moves all extremities Results - Labs CBC & Chem 7: 01/08/21 04:50 01/08/21 04:50 Labs: Laboratory Last Values WBC 11.3 K/mm3 (4.5-11.0) H 01/07/21 10:05 RBC 3.12 M/mm3 (3.65-5.03) L 01/07/21 10:05 Hgb 7.9 gm/dl (11.8-15.2) L 01/08/21 04:50 Hct 25.1 % (35.5-45.6) L 01/08/21 04:50 MCV 79 fl (84-94) L 01/07/21 10:05 MCH 26 pg (28-32) L 01/07/21 10:05 MCHC 33 % (32-34) 01/07/21 10:05 RDW 18.5 % (13.2-15.2) H 01/07/21 10:05 Plt Count 511 K/mm3 (140-440) H 01/07/21 10:05 Sodium 136 mmol/L (137-145) L 01/08/21 04:50 Potassium 3.2 mmol/L (3.6-5.0) L 01/08/21 04:50 Chloride 96.8 mmol/L (98-107) L 01/08/21 04:50 Carbon Dioxide 23 mmol/L (22-30) 01/08/21 04:50 Anion Gap 19 mmol/L 01/08/21 04:50 BUN 6 mg/dL (9-20) L 01/08/21 04:50 Creatinine 0.3 mg/dL (0.8-1.3) L 01/08/21 04:50 Estimated GFR > 60 ml/min 01/08/21 04:50 BUN/Creatinine Ratio 20 % 01/08/21 04:50 Glucose 178 mg/dL (75-100) H 01/08/21 04:50 POC Glucose 178 mg/dL (70-105) H 01/09/21 07:55 Calcium 9.0 mg/dL (8.4-10.2) 01/08/21 04:50 Blood Type B POSITIVE 01/07/21 10:05 Antibody Screen Negative 01/07/21 10:05 Ortiz/IV: Voiding Method Urinal Active Medications - Current Medications Current Medications: Generic Name Dose Route Start Last Admin Trade Name Freq PRN Reason Stop Dose Admin Acetaminophen 650 mg 01/07/21 15:59 Acetaminophen 325 Mg Tab PO Q4H PRN Pain MILD(1-3)/Fever >100.5/CASTILLO Amlodipine Besylate 10 mg 01/08/21 10:00 01/08/21 11:41 Amlodipine 10 Mg Tab PO 10 mg DAILY LISA Administration Cilostazol 100 mg 01/07/21 22:00 01/08/21 21:36 Cilostazol 100 Mg Tab PO 100 mg BID LISA Administration Clopidogrel Bisulfate 75 mg 01/08/21 10:00 01/08/21 11:41 Clopidogrel 75 Mg Tab PO 75 mg QDAY LISA Administration Gabapentin 300 mg 01/07/21 22:00 01/08/21 21:36 Gabapentin 300 Mg Cap PO 300 mg BID LISA Administration Gemfibrozil 600 mg 01/07/21 22:00 01/08/21 21:36 Gemfibrozil 600 Mg Tab PO 600 mg BID LISA Administration Glimepiride 4 mg 01/08/21 10:00 01/08/21 11:38 Glimepiride 4 Mg Tab PO 4 mg QAM LISA Administration Hydrochlorothiazide 25 mg 01/08/21 10:00 01/08/21 11:37 Hydrochlorothiazide 25 Mg Tab PO 25 mg QDAY LISA Administration Hydromorphone HCl 0.5 mg 01/07/21 15:59 Hydromorphone 1 Mg/1 Ml Inj IV Q3H PRN Pain , Severe (7-10) Insulin Human Lispro 0 unit 01/07/21 16:30 01/08/21 21:38 Insulin Lispro 100 Unit/Ml SUB-Q Not Given ACHS [facility] Protocol Ketorolac Tromethamine 30 mg 01/07/21 15:59 Ketorolac 30 Mg/1 Ml Inj IV 01/12/21 15:58 Q6H PRN Pain, Moderate (4-6) Latanoprost 1 drops 01/07/21 18:00 01/08/21 19:47 Latanoprost 0.005% Ophth Soln 2.5 Ml OU 1 drops QPM LISA Administration Linagliptin 5 mg 01/08/21 10:00 01/08/21 11:38 Linagliptin 5 Mg Tab PO 5 mg QDAY LISA Administration Lisinopril 40 mg 01/08/21 10:00 01/08/21 11:39 Lisinopril 40 Mg Tab PO 40 mg QDAY LISA Administration Metformin HCl 500 mg 01/07/21 17:00 01/08/21 16:11 Metformin 500 Mg Tab PO 500 mg BIDDIAB LISA Administration Miscellaneous Medication 1 tab 01/08/21 10:00 Dapagliflozin Propanediol [Farxiga] PO DAILY LISA Oxycodone/Acetaminophen 2 tab 01/07/21 15:59 01/08/21 21:37 Oxycodone /Acetaminophen 5-325mg Tab PO 2 tab Q6H PRN Administration Pain, Moderate (4-6) Pantoprazole Sodium 40 mg 01/08/21 10:00 01/08/21 11:39 Pantoprazole 40 Mg Tab PO 40 mg QDAY LISA Administration Rivaroxaban 2.5 mg 01/07/21 22:00 01/08/21 21:38 Rivaroxaban 10 Mg Tab PO 2.5 mg BID LISA Administration
[2021-01-09] MEDS: INSULIN LISPRO 100 UNIT/ML SUB-Q SCH ×2 (10:17→12:20)
[2021-01-09] MEDS: GLIMEPIRIDE 4 MG TAB PO SCH (10:18)
[2021-01-09] MEDS: metFORMIN 500 MG TAB PO SCH (10:19)
[2021-01-09] MEDS: hydroCHLOROthiazide 25 MG TAB PO SCH (10:19)
[2021-01-09] MEDS: CILOSTAZOL 100 MG TAB PO SCH (10:19)
[2021-01-09] MEDS: amLODIPine 10 MG TAB PO SCH (10:19)
[2021-01-09] MEDS: GABAPENTIN 300 MG CAP PO SCH (10:20)
[2021-01-09] MEDS: LISINOPRIL 40 MG TAB PO SCH (10:20)
[2021-01-09] MEDS: LINAGLIPTIN 5 MG TAB PO SCH (10:20)
[2021-01-09] MEDS: RIVAROXABAN 10 MG TAB PO SCH (10:20)
[2021-01-09] MEDS: GEMFIBROZIL 600 MG TAB PO SCH (10:20)
[2021-01-09] MEDS: CLOPIDOGREL 75 MG TAB PO SCH (10:21)
[2021-01-09] MEDS: oxyCODONE /ACETAMINOPHEN 5-325MG TAB PO PRN (10:21)
[2021-01-09] MEDS: PANTOPRAZOLE 40 MG TAB PO SCH (10:21)
[2021-01-09 12:33] VITALS: BP 162/87
--- NOTE | 2021-01-09 13:58 | Progress Note ---
Assessment and Plan Postoperative day #2 status post left below-knee amputation. The patient's incision is doing well and the stump is well perfused without si gns of ischemia or infection. The patient is able to ambulate with a rolling walker and minimal assistance. He will need PT and OT as an outpatient. He has been given discharge instructions is expressed understanding of the instructions as well as the plan for PT OT as an outpatient. He is otherwise clinically ready for discharge. Subjective Date of service: 01/09/21 Principal diagnosis: Peripheral vascular disease with gangrene Interval history: The patient states his pain is significantly better than his rest pain and his initial pain after the operation. He has no complaints at this time. Objective - Constitutional Vitals: Vital Signs - 12hr 01/09/21 01/09/21 01/09/21 04:18 07:55 10:00 Temperature 98.8 F 99.0 F Pulse Rate 116 H 129 H Respiratory 20 20 18 Rate Blood Pressure 159/82 162/84 O2 Sat by Pulse 99 100 100 Oximetry 01/09/21 01/09/21 01/09/21 10:19 10:20 10:21 Temperature Pulse Rate 99 H 99 H Respiratory 17 Rate Blood Pressure 145/77 145/77 O2 Sat by Pulse Oximetry 01/09/21 01/09/21 11:21 11:39 Temperature 98.7 F Pulse Rate Respiratory 15 20 Rate Blood Pressure 162/87 O2 Sat by Pulse Oximetry General appearance: Present: no acute distress - Respiratory Respiratory effort: normal - Cardiovascular Rhythm: regular Extremities: no ischemia, abnormal (The left thumb dressing was removed and the incision is clean, dry, and intact. There are no signs of ischemia and the stump is warm.) - Gastrointestinal General gastrointestinal: Present: soft - Labs CBC & Chem 7: 01/08/21 04:50 01/08/21 04:50 Labs: Abnormal lab results 01/08/21 01/08/21 01/09/21 Range/Units 15:52 19:48 07:55 POC Glucose 194 H 299 H 178 H (70-105) mg/dL 01/09/21 Range/Units 11:38 POC Glucose 192 H (70-105) mg/dL Medications & Allergies - Medications Allergies/Adverse Reactions: Allergies Ftxrgkg-Fmp-Yzv Reductase Inhibitor Allergy (Verified 01/06/21 14:52) Headache Home Medications: Home Medications Medication Instructions Recorded Confirmed Last Taken Type Amlodipine Besylate/Benazepril 1 each PO DAILY 08/22/20 01/07/21 01/07/21 06:30 History [Amlodipine-Benazepril 10-40 mg] Dapagliflozin Propanediol [Farxiga] 1 tab PO DAILY 08/22/20 01/06/21 01/06/21 History Docosahexanoic Acid [Algal [place]-3 200 mg PO DAILY 08/22/20 01/06/21 01/06/21 History Dha] Gabapentin 300 mg PO BID 08/22/20 01/06/21 01/06/21 History Glimepiride [Amaryl] 4 mg PO QAM 08/22/20 01/06/21 01/06/21 History Latanoprost 0.005% 1 drop OP QPM 08/22/20 01/06/21 01/06/21 History Sitagliptin Phos/Metformin HCl 1 each PO DAILY 08/22/20 01/07/21 01/05/21 H istory [Janumet 50-1,000 mg Tablet] gemfibroziL [Lopid] 600 mg PO BID 08/22/20 01/06/21 01/06/21 History hydroCHLOROthiazide [HCTZ] 25 mg PO QDAY 08/22/20 01/06/21 01/06/21 History Clopidogrel [Plavix] 75 mg PO QDAY #90 tablet 09/03/20 01/07/21 01/06/21 Rx Rivaroxaban [Xarelto] 2.5 mg PO BID #180 tablet 09/03/20 01/07/21 01/06/21 Rx Oxycodone HCl/Acetaminophen 1 each PO Q6HR PRN #30 tablet 09/12/20 01/06/21 01/06/21 Rx [Percocet 7.5/325 mg] Pantoprazole [Protonix] 40 mg PO QDAY #90 tablet 09/12/20 01/06/21 01/06/21 Rx cilostazoL [Pletal] 100 mg PO BID #180 tablet 09/12/20 01/06/21 01/06/21 Rx Active Medications: Generic Name Dose Route Start Last Admin Trade Name Freq PRN Reason Stop Dose Admin Acetaminophen 650 mg 01/07/21 15:59 Acetaminophen 325 Mg Tab PO Q4H PRN Pain MILD(1-3)/Fever >100.5/CASTILLO Amlodipine Besylate 10 mg 01/08/21 10:00 01/09/21 10:19 Amlodipine 10 Mg Tab PO 10 mg DAILY LISA Administration Cilostazol 100 mg 01/07/21 22:00 01/09/21 10:19 Cilostazol 100 Mg Tab PO 100 mg BID LISA Administration Clopidogrel Bisulfate 75 mg 01/08/21 10:00 01/09/21 10:21 Clopidogrel 75 Mg Tab PO 75 mg QDAY LISA Administration Gabapentin 300 mg 01/07/21 22:00 01/09/21 10:20 Gabapentin 300 Mg Cap PO 300 mg BID LISA Administration Gemfibrozil 600 mg 01/07/21 22:00 01/09/21 10:20 Gemfibrozil 600 Mg Tab PO 600 mg BID LISA Administration Glimepiride 4 mg 01/08/21 10:00 01/09/21 10:18 Glimepiride 4 Mg Tab PO 4 mg QAM LISA Administration Hydrochlorothiazide 25 mg 01/08/21 10:00 01/09/21 10:19 Hydrochlorothiazide 25 Mg Tab PO 25 mg QDAY LISA Administration Hydromorphone HCl 0.5 mg 01/07/21 15:59 Hydromorphone 1 Mg/1 Ml Inj IV Q3H PRN Pain , Severe (7-10) Insulin Human Lispro 0 unit 01/07/21 16:30 01/09/21 12:20 Insulin Lispro 100 Unit/Ml SUB-Q Not Given ACHS [facility] Protocol Ketorolac Tromethamine 30 mg 01/07/21 15:59 Ketorolac 30 Mg/1 Ml Inj IV 01/12/21 15:58 Q6H PRN Pain, Moderate (4-6) Latanoprost 1 drops 01/07/21 18:00 01/08/21 19:47 Latanoprost 0.005% Ophth Soln 2.5 Ml OU 1 drops QPM LISA Administration Linagliptin 5 mg 01/08/21 10:00 01/09/21 10:20 Linagliptin 5 Mg Tab PO 5 mg QDAY LISA Administration Lisinopril 40 mg 01/08/21 10:00 01/09/21 10:20 Lisinopril 40 Mg Tab PO 40 mg QDAY LISA Administration Metformin HCl 500 mg 01/07/21 17:00 01/09/21 10:19 Metformin 500 Mg Tab PO 500 mg BIDDIAB LISA Administration Miscellaneous Medication 1 tab 01/08/21 10:00 Dapagliflozin Propanediol [Farxiga] PO DAILY LISA Oxycodone/Acetaminophen 2 tab 01/07/21 15:59 01/09/21 10:21 Oxycodone /Acetaminophen 5-325mg Tab PO 2 tab Q6H PRN Administration Pain, Moderate (4-6) Pantoprazole Sodium 40 mg 01/08/21 10:00 01/09/21 10:21 Pantoprazole 40 Mg Tab PO 40 mg QDAY LISA Administration Rivaroxaban 2.5 mg 01/07/21 22:00 01/09/21 10:20 Rivaroxaban 10 Mg Tab PO 2.5 mg BID LISA Administration
--- NOTE | 2021-01-09 14:00 | Short Stay Summary ---
Short Stay Documentation Date of service: 01/09/21 - Allergies and Medications Current Medications: Allergies Dzfefaz-Htw-Sxq Reductase Inhibitor Allergy (Verified 01/06/21 14:52) Headache Home Medications Medication Instructions Recorded Confirmed Last Taken Type Amlodipine Besylate/Benazepril 1 each PO DAILY 08/22/20 01/07/21 01/07/21 06:30 History [Amlodipine-Benazepril 10-40 mg] Dapagliflozin Propanediol [Farxiga] 1 tab PO DAILY 08/22/20 01/06/21 01/06/21 History Docosahexanoic Acid [Algal [place]-3 200 mg PO DAILY 08/22/20 01/06/21 01/06/21 History Dha] Gabapentin 300 mg PO BID 08/22/20 01/06/21 01/06/21 History Glimepiride [Amaryl] 4 mg PO QAM 08/22/20 01/06/21 01/06/21 History Latanoprost 0.005% 1 drop OP QPM 08/22/20 01/06/21 01/06/21 History Sitagliptin Phos/Metformin HCl 1 each PO DAILY 08/22/20 01/07/21 01/05/21 History [Janumet 50-1,000 mg Tablet] gemfibroziL [Lopid] 600 mg PO BID 08/22/20 01/06/21 01/06/21 History hydroCHLOROthiazide [HCTZ] 25 mg PO QDAY 08/22/20 01/06/21 01/06/21 History Clopidogrel [Plavix] 75 mg PO QDAY #90 tablet 09/03/20 01/07/21 01/06/21 Rx Rivaroxaban [Xarelto] 2.5 mg PO BID #180 tablet 09/03/20 01/07/21 01/06/21 Rx Oxycodone HCl/Acetaminophen 1 each PO Q6HR PRN #30 tablet 09/12/20 01/06/21 01/06/21 Rx [Percocet 7.5/325 mg] Pantoprazole [Protonix] 40 mg PO QDAY #90 tablet 09/12/20 01/06/21 01/06/21 Rx cilostazoL [Pletal] 100 mg PO BID #180 tablet 09/12/20 01/06/21 01/06/21 Rx Active Medications Acetaminophen (Acetaminophen 325 Mg Tab) 650 mg PO Q4H PRN PRN Reason: Pain MILD(1-3)/Fever >100.5/CASTILLO Amlodipine Besylate (Amlodipine 10 Mg Tab) 10 mg PO DAILY [facility] Last Admin: 01/09/21 10:19 Dose: 10 mg Documented by: Cilostazol (Cilostazol 100 Mg Tab) 100 mg PO BID [facility] Last Admin: 01/09/21 10:19 Dose: 100 mg Documented by: Clopidogrel Bisulfate (Clopidogrel 75 Mg Tab) 75 mg PO QDAY [facility] Last Admin: 01/09/21 10:21 Dose: 75 mg Documented by: Gabapentin (Gabapentin 300 Mg Cap) 300 mg PO BID [facility] Last Admin: 01/09/21 10:20 Dose: 300 mg Documented by: Gemfibrozil (Gemfibrozil 600 Mg Tab) 600 mg PO BID [facility] Last Admin: 01/09/21 10:20 Dose: 600 mg Documented by: Glimepiride (Glimepiride 4 Mg Tab) 4 mg PO QAM [facility] Last Admin: 01/09/21 10:18 Dose: 4 mg Documented by: Hydrochlorothiazide (Hydrochlorothiazide 25 Mg Tab) 25 mg PO QDAY [facility] Last Admin: 01/09/21 10:19 Dose: 25 mg Documented by: Hydromorphone HCl (Hydromorphone 1 Mg/1 Ml Inj) 0.5 mg IV Q3H PRN PRN Reason: Pain , Severe (7-10) Insulin Human Lispro (Insulin Lispro 100 Unit/Ml) 0 unit SUB-Q ACHS [facility]; Protocol Last Admin: 01/09/21 12:20 Dose: Not Given Documented by: Ketorolac Tromethamine (Ketorolac 30 Mg/1 Ml Inj) 30 mg IV Q6H PRN PRN Reason: Pain, Moderate (4-6) Stop: 01/12/21 15:58 Latanoprost (Latanoprost 0.005% Ophth Soln 2.5 Ml) 1 drops OU QPM [facility] Last Admin: 01/08/21 19:47 Dose: 1 drops Documented by: Linagliptin (Linagliptin 5 Mg Tab) 5 mg PO QDAY [facility] Last Admin: 01/09/21 10:20 Dose: 5 mg Documented by: Lisinopril (Lisinopril 40 Mg Tab) 40 mg PO QDAY [facility] Last Admin: 01/09/21 10:20 Dose: 40 mg Documented by: Metformin HCl (Metformin 500 Mg Tab) 500 mg PO BIDDIAB [facility] Last Admin: 01/09/21 10:19 Dose: 500 mg Documented by: Miscellaneous Medication (Dapagliflozin Propanediol [Farxiga]) 1 tab PO DAILY [facility] Oxycodone/Acetaminophen (Oxycodone /Acetaminophen 5-325mg Tab) 2 tab PO Q6H PRN PRN Reason: Pain, Moderate (4-6) Last Admin: 01/09/21 10: Dose: 2 tab Documented by: Pantoprazole Sodium (Pantoprazole 40 Mg Tab) 40 mg PO QDAY [facility] Last Admin: 01/09/21 10: Dose: 40 mg Documented by: Rivaroxaban (Rivaroxaban 10 Mg Tab) 2.5 mg PO BID [facility] Last Admin: 01/09/21 10: Dose: 2.5 mg Documented by: - Physical exam Extremities: no ischemia, abnormal (The left thumb dressing was removed and the incision is clean, dry, and intact. There are no signs of ischemia and the stump is warm.) - Hospital course Hospital course: Date of procedure: 01/07/2021 Pre-operative diagnosis: Peripheral Vascular Disease with Left Lower Extremity Gangrene Post-operative diagnosis: Same Procedure(s): Left Below Knee Amputation Surgeon: Benedicto Osman MD Teacher Dancing: None Anesthesia: General Endotracheal Anesthesia EBL: 100 mL Counts: Correct Complications: None Condition: Stable Findings: All remaining tissue was healthy and viable Specimen: Left Leg Sent to Pathology Indication: The patient is a 60-year-old male with a history of peripheral vascular disease and tobacco abuse who has had endovascular intervention on his left lower extremity to treat critical limb ischemia. Despite intervention he continued to smoke and had deterioration of his ischemia which progressed to a nonsalvage able foot. He is in need of a left below-knee amputation to treat his rest pain as well as gangrene of his foot. He was given the risk, benefits, and alternative procedures and consented to the procedure. Description of Procedure: The patient was brought to the operating room and laid in supine position after general endotracheal anesthesia the patient's left leg was prepped and draped in normal sterile fashion. A transverse incision was then created approximately 3 fingerbreadths below the tibial tuberosity and carried the incision down distally to create a posterior flap, using a 10 blade. Electrocautery was then used to divide the muscle down to the tibia and then down to the fibula. I then used a periosteal elevator to elevate the periosteum on the tibia approximately 2 cm above the incision and then I used an oscillating saw to divide the tibia. I then used a double-action bone cutter to divide the fibula approximately 2 cm above the tibia. I divided the remainder of the soft tissue using electrocautery and passed the specimen off. I identified the neurovascular bundle and ligated both the vein and artery using 0 silk stick ties. I then used 0 silk to perform high ligation of the nerve. I achieved hemostasis using electrocautery and direct pressure. Once hemostasis was achieved I used a rasps to smooth the tibia and then copiously irrigated the wound with saline. I anesthetized the wound using 0.5% Marcaine. I then closed the wound in 2 layers using 0 Vicryl to reapproximate the fascia and vicki to close the skin. I dressed the wound with Xeroform gauze, fluffs, ABDs, Kerlix, and an Spenser bandage. I placed an appropriately sized knee immobilizer. The patient tolerated the procedure well all sponge needle and instrument counts were the patient was taken to recovery in stable condition. The patient was admitted and underwent a left below-knee amputation. Postoperatively he had no complications and on postoperative day #2 he is clinically ready for discharge home. - Disposition Condition at discharge: Good Disposition: 01 HOME / SELF CARE / HOMELESS Short Stay Discharge Plan Activity: fall precautions, other (Knee immobilizer should remain on left BKA stump at all times unless working with PT or OT.) Weight Bearing Status: Non-Weight Bearing (Nonweightbearing with left lower extremity) Wound: change dressing (Patient should change left BKA stump dressings daily), other (Okay to wash the left BKA stump incision with soap and water, daily, but do not soak in water until the vicki have been removed.) Follow up with: BENEDICTO OSMAN MD [Staff Physician] - 14 Days Prescriptions: Oxycodone HCl/Acetaminophen [Percocet 7.5/325 mg] 1 each PO Q6HR PRN #40 tablet PRN Reason: Pain
== END 2021-01-09 15:45 | disposition home or self-care (01) | DRG 240 ==
LOC: OR 09:17 → 4A 15:59
PROVIDERS: ADMIT Surgery Vascular Surgery; ATTEND Surgery Vascular Surgery
PROC: 0Y6J0Z3 Detachment at Left Lower Leg, Low, Open Approach (ICD-10-PCS; principal; 2021-01-07)
DX: E11.52 Type 2 diabetes mellitus with diabetic peripheral angiopathy with gangrene (principal); I96 Gangrene, not elsewhere classified; F17.210 Nicotine dependence, cigarettes, uncomplicated; E11.40 Type 2 diabetes mellitus with diabetic neuropathy, unspecified; F17.200 Nicotine dependence, unspecified, uncomplicated; Z88.8 Allergy status to other drugs, medicaments and biological substances
CPT/HCPCS: 36415; 80048; 82962; 85014; 85018; 85027; 86850; 86900; 86901; 88307; 88311; G0378; J0690; J1170; J2250; J2405; J2704; J3010; J3490; J7120

== ENCOUNTER 2021-03-04 07:10 | Day surgery (SDC) | payer BC ==
[~2021-03-04 07:10] MED LIST changes: -ACETAMINOPHEN 500 MG TAB PO SCH; -GABAPENTIN 300 MG CAP PO NR; +MIDAZOLAM 2 MG/2 ML INJ IV NR
[2021-03-04] MEDS ORDERED: LACTATED RINGERS 1,000 ML ONE ×2 (08:25→14:20)
[2021-03-04] MEDS ORDERED: LACTATED RINGERS 1,000 ML IV SCH (09:00)
[2021-03-04 09:38] LABS: Blood Urea Nitrogen 13 mg/dL (9-20); Calcium 9.4 mg/dL (8.4-10.2); Hemolysis Index 4
[2021-03-04 09:40] LABS: Hematocrit 33.7 % (35.5-45.6); Hemoglobin 10.6 gm/dl (11.8-15.2); Mean Corpuscular HGB Conc 32 % (32-34); Mean Corpuscular Volume 81 fl (84-94); Platelet Count 336 K/mm3 (140-440); Red Blood Count 4.19 M/mm3 (3.65-5.03)
[2021-03-04 09:41] LABS: Red Cell Distribution Width 21.7 % (13.2-15.2)
[2021-03-04 09:42] LABS: BUN/Creatinine Ratio 33
[2021-03-04] MEDS ORDERED: ONDANSETRON 4 MG/2 ML INJ IV PRN (10:04)
[2021-03-04] MEDS ORDERED: oxyCODONE /ACETAMINOPHEN 5-325MG TAB PO PRN ×2 (10:04→15:18)
--- NOTE | 2021-03-04 10:04 | Anesthesia Day of Surgery ---
Anesthesia Day of Surgery - Day of Surgery Patient Examined: Yes Patient H&P Reviewed: Yes Patient is NPO: Yes
--- NOTE | 2021-03-04 10:04 | Anesthesia Consultation ---
Anesthesia Consult and Med Hx Date of service: 03/04/21 - Airway Anesthetic Teeth Evaluation: Edentulous ROM Head & Neck: Adequate Mental/Hyoid Distance: Adequate Mallampati Class: Class III Intubation Access Assessment: Possibly Difficult (previous LMA 4) - Pre-Operative Health Status ASA Pre-Surgery Classification: ASA3 Proposed Anesthetic Plan: General - Pulmonary Hx Smoking: Yes (04/27 - 04/26 PPD) Hx Respiratory Symptoms: No - Cardiovascular System Hx Hypertension: Yes Hx Heart Attack/AMI: No Hx Percutaneous Transluminal Coronary Angioplasty (PTCA): No Hx Peripheral Vascular Disease: Yes (last dose eliquis and plavix 03/03/21) - Central Nervous System CVA: No - Endocrine Hx Renal Disease: No Hx Liver Disease: No Hx Non-Insulin Dependent Diabetes: Yes Hx Thyroid Disease: No - Hematic Hx Anemia: Yes - Other Systems Hx Obesity: No - Additional Comments Anesthesia Medical History Comments: No hx anesthetic complications.
[2021-03-04] MEDS ORDERED: fentaNYL 100 MCG/2 ML INJ IV PRN (10:06)
[2021-03-04] MEDS ORDERED: fentaNYL 100 MCG/2 ML INJ ONE ×3 (10:22→12:45)
[2021-03-04] MEDS ORDERED: LIDOCAINE MPF (2%) 20 MG/1 ML VIAL 5 ML ONE (11:24)
[2021-03-04] MEDS ORDERED: ONDANSETRON 4 MG/2 ML INJ ONE (11:24)
[2021-03-04] MEDS ORDERED: propofoL 200 MG/20 ML VIAL IV ONE (11:25)
[2021-03-04] MEDS ORDERED: HYDROmorphone 1 MG/1 ML INJ ONE (13:41)
--- NOTE | 2021-03-04 14:19 | Short Stay Summary ---
Short Stay Documentation Date of service: 03/04/21 Narrative H&P: See H&P - History H&P: obtained from office - Allergies and Medications Current Medications: Allergies Hjobfbv-YKO-JmF Reductase Inhibitor [Uoyoksq-Vmh-Qey Reductase Inhibitor] Allergy (Verified 03/02/21 15:27) Headache Home Medications Medication Instructions Recorded Confirmed Last Taken Type Amlodipine Besylate/Benazepril 1 each PO DAILY 08/22/20 03/02/21 03/03/21 History [Amlodipine-Benazepril 10-40 mg] Dapagliflozin Propanediol [Farxiga] 1 tab PO HS 08/22/20 03/02/21 03/03/21 History Gabapentin 600 mg PO BID 08/22/20 03/02/21 03/03/21 History Glimepiride [Amaryl] 4 mg PO QAM 08/22/20 03/02/21 03/03/21 History Latanoprost 0.005% 1 drop OP QPM 08/22/20 03/02/21 03/03/21 History Sitagliptin Phos/Metformin HCl 1 each PO BID 08/22/20 03/02/21 03/02/21 History [Janumet 50-1,000 mg Tablet] hydroCHLOROthiazide [HCTZ] 25 mg PO QDAY 08/22/20 03/02/21 03/03/21 History Clopidogrel [Plavix] 75 mg PO QDAY #90 tablet 09/03/20 03/02/21 03/03/21 Rx Rivaroxaban [Xarelto] 2.5 mg PO BID #180 tablet 09/03/20 03/02/21 03/03/21 Rx Pantoprazole [Protonix TAB] 40 mg PO QDAY #90 tablet 09/12/20 03/02/21 03/03/21 Rx Oxycodone HCl/Acetaminophen 1 each PO Q6HR PRN #40 tablet 01/09/21 03/02/21 03/03/21 Rx [Percocet 7.5/325 mg] Active Medications Cefazolin Sodium (Cefazolin/Sterile Water 2 Gm/20 Ml Syringe) 2 gm IV PREOP NR Stop: 03/04/21 23:59 Fentanyl (Fentanyl 100 Mcg/2 Ml Inj) 50 mcg IV Q15MIN PRN PRN Reason: Pain , Severe (7-10) Stop: 03/04/21 16:00 Last Admin: 03/04/21 10:23 Dose: 50 mcg Documented by: Hydromorphone HCl (Hydromorphone 1 Mg/1 Ml Inj) 0.5 mg IV Q10MIN PRN PRN Reason: Pain , Severe (7-10) Stop: 03/04/21 23:00 Lactated Ringer's (Lactated Ringers) 1,000 mls @ 100 mls/hr IV DIRECT LISA Stop: 03/04/21 22:00 Last Admin: 03/04/21 09:00 Dose: 100 mls/hr Documented by: Midazolam HCl (Midazolam 2 Mg/2 Ml Inj) 2 mg IV PREOP NR Stop: 03/14/21 23:00 Last Admin: 03/04/21 10:10 Dose: 2 mg Documented by: - Brief post op/procedure progress note Date of procedure: 03/04/21 Pre-op diagnosis: Nonhealing Left Below-Knee Amputation Post-op diagnosis: same Procedure: 1. Excisional Debridement of Skin, Soft Tissue, and Muscle of Left Below-Knee Amputation (Wound Measures 13 x 11 x 9 cm) 2. Placement of 12 x 12 cm OviTex LPR Reinforced BioScaffold Over Tibia 3. Wound VAC Placement Anesthesia: GETA Surgeon: LUKASZ JARAMILLO Estimated blood loss: 50-100ml Pathology: list (Skin, muscle, and soft tissue from left below-knee amputation) Specimen disposition: discarded Condition: stable - Disposition Condition at discharge: Good Disposition: 01 HOME / SELF CARE / HOMELESS Short Stay Discharge Plan Wound: per wound nurse instructions Follow up with: LUKASZ JARAMILLO MD [Staff Physician] - 14 Days Prescriptions: Oxycodone HCl/Acetaminophen [Percocet 10/325 mg] 1 each PO Q6HR PRN #30 tablet PRN Reason: Pain
--- NOTE | 2021-03-04 14:21 | Operative Report ---
Operative Report Operative Report: Date of Procedure: 03/04/2021 Pre-operative Diagnosis: Nonhealing Left Below Knee Amputation Post-operative Diagnosis: Same Procedure(s): 1. Excisional Debridement of Skin, Soft Tissue, and Muscle of Left Below-Knee Amputation (Wound Measures 13 x 11 x 9 cm) 2. Placement of 12 x 12 cm OviTex LPR Reinforced BioScaffold Over Tibia 3. Wound VAC Placement Surgeon: Benedicto Osman M.D. Apartment Hotel Manager: None Anesthesia: General Endotracheal Anesthesia EBL: 150 mL Counts: Correct Complications: None Condition: Stable Findings: Wound was debrided to healthy tissue with bleeding edges. Tibia was exposed and required coverage. Specimen: Skin, muscle, and soft tissue from Left BKA were discarded. Indication: Patient is a 61-year-old male with a history of peripheral vascular disease who recently underwent a left below-knee amputation. His amputation site is poorly healing with necrosis of the anterior portion of the wound. He is in need of debridement of the wound with wound VAC placement. He has been given the risk, benefits, and alternative procedures and consented to the procedure. Description of Procedure: The patient was brought to the operating room and laid in supine position. After timeout was performed left BKA stump was prepped and draped in normal sterile fashion. A 10 blade was used to sharply excise around the eschar on the anterior wound and then to sharply excise the eschar from the wound. Upon removing the eschar it was noted that there was a significant amount of necrotic and liquefied muscle below the eschar. This was sharply debrided with curved Mayos. Upon debriding the muscle it was noted that the liquefied muscle and necrotic tissue tract medially. Upon debriding the muscle I discovered that the distal tibia was exposed. I continue to debride all muscle and soft tissue until it was down some clean and bleeding tissue edges. I then used a pulse lavage further debride any devitalized tissue and decreased the bacterial count within the wound. Once the wound had been adequately debrided hemostasis was achieved with a combination of cautery and direct pressure. Once hemostasis was achieved I used a 12 x 12 cm OviTex LPR Reinforced BioScaffold to cover the tibia. This was secured in place with 2-0 Vicryl interrupted fashion. Once thi s was secured in place the wound VAC was placed with an adequate seal. A Kerlix was then used to cover the leg. The patient tolerated the procedure well. All sponge, needle, and instrument counts were correct. The patient was taken to the recovery area in stable condition.
[2021-03-04] MEDS: HYDROmorphone 1 MG/1 ML INJ IV PRN ×4 (14:40→15:10)
[2021-03-04 18:47] VITALS: BP 156/93
== END 2021-03-04 16:50 | disposition home or self-care (01) ==
LOC: OR 07:10
PROVIDERS: ATTEND Surgery Vascular Surgery
DX: T81.89XD Other complications of procedures, not elsewhere classified, subsequent encounter (principal); I70.245 Atherosclerosis of native arteries of left leg with ulceration of other part of foot; I10 Essential (primary) hypertension; E11.51 Type 2 diabetes mellitus with diabetic peripheral angiopathy without gangrene; F17.210 Nicotine dependence, cigarettes, uncomplicated; Z79.899 Other long term (current) drug therapy; Z89.512 Acquired absence of left leg below knee; Z98.890 Other specified postprocedural states; Y83.8 Other surgical procedures as the cause of abnormal reaction of the patient, or of later complication, without mention of misadventure at the time of the procedure
CPT/HCPCS: 11043; 11046; 15777; 36415; 80048; 82962; 85027; C1781; J0690; J1170; J2250; J2405; J2704; J3010; J7120

== ENCOUNTER 2021-08-18 09:01 | Day surgery (SDC) | payer BC ==
[~2021-08-18 09:01] MED LIST changes: +ACETAMINOPHEN 500 MG TAB PO SCH; +LACTATED RINGERS 1,000 ML IV SCH; +SODIUM CHLORIDE 0.9% IRR 1,500 ML BOTTLE IR ONE
[2021-08-18 10:27] LABS: Hematocrit 30.1 % (35.5-45.6); Hemoglobin 9.6 gm/dl (11.8-15.2); Mean Corpuscular HGB Conc 32 % (32-34); Mean Corpuscular Volume 76 fl (84-94); Platelet Count 479 K/mm3 (140-440); Red Blood Count 3.94 M/mm3 (3.65-5.03)
[2021-08-18 10:34] LABS: Blood Urea Nitrogen 9 mg/dL (9-20); Calcium 9.2 mg/dL (8.4-10.2); Hemolysis Index 24
[2021-08-18 10:35] LABS: BUN/Creatinine Ratio 30
[2021-08-18] MEDS ORDERED: HYDROmorphone 1 MG/1 ML INJ ONE (10:42)
[2021-08-18] MEDS ORDERED: HYDROmorphone 1 MG/1 ML INJ IV ONE (10:42)
[2021-08-18] MEDS ORDERED: ONDANSETRON 4 MG/2 ML INJ IV PRN (10:42)
--- NOTE | 2021-08-18 10:44 | Anesthesia Consultation ---
Anesthesia Consult and Med Hx Date of service: 08/18/21 - Airway Anesthetic Teeth Evaluation: Edentulous ROM Head & Neck: Adequate Mental/Hyoid Distance: Adequate Mallampati Class: Class III Intubation Access Assessment: Possibly Difficult (previous LMA 4) - Pre-Operative Health Status ASA Pre-Surgery Classification: ASA3 Proposed Anesthetic Plan: General - Pulmonary Hx Smoking: Yes (1/2-1PPD) Hx Respiratory Symptoms: No - Cardiovascular System Hx Hypertension: Yes Hx Heart Attack/AMI: No Hx Percutaneous Transluminal Coronary Angioplasty (PTCA): No Hx Peripheral Vascular Disease: Yes (PAD s/p left BKA) - Central Nervous System CVA: No - Endocrine Hx Renal Disease: No Hx Liver Disease: No Hx Non-Insulin Dependent Diabetes: Yes Hx Thyroid Disease: No - Other Systems Hx Obesity: No - Additional Comments Anesthesia Medical History Comments: No hx anesthetic complications.
--- NOTE | 2021-08-18 10:45 | Anesthesia Day of Surgery ---
Anesthesia Day of Surgery - Day of Surgery Patient Examined: Yes Patient H&P Reviewed: Yes Patient is NPO: Yes
[2021-08-18] MEDS ORDERED: HYDROmorphone 1 MG/1 ML INJ IV PRN (11:00)
[2021-08-18] MEDS ORDERED: fentaNYL 100 MCG/2 ML INJ ONE ×2 (12:34→14:02)
[2021-08-18] MEDS ORDERED: MIDAZOLAM 2 MG/2 ML INJ ONE (12:34)
[2021-08-18] MEDS ORDERED: LIDOCAINE (1%) 10 MG/1 ML VIAL 20 ML MDV ONE (12:35)
[2021-08-18] MEDS ORDERED: propofoL 200 MG/20 ML VIAL IV ONE (12:35)
[2021-08-18] MEDS ORDERED: dexAMETHasone 20 MG/5 ML VIAL ONE (12:36)
[2021-08-18] MEDS ORDERED: ONDANSETRON 4 MG/2 ML INJ ONE (12:36)
[2021-08-18] MEDS ORDERED: LIDOCAINE MPF (2%) 20 MG/1 ML VIAL 5 ML ONE (12:37)
[2021-08-18] MEDS ORDERED: SODIUM BICARBONATE 2 MEQ/2 ML SYRINGE ONE (12:38)
--- NOTE | 2021-08-18 12:57 | Short Stay Summary ---
Short Stay Documentation Date of service: 08/18/21 Narrative H&P: The patient is a 61-year-old male with a history of peripheral vascular disease who underwent a left below-knee amputation. His amputation site dehisced and required debridement with healing with a wound VAC. He now has exposed tibia that is hindering complete healing of the wound. He is in need of revision of the amputation site with revision of the tibia as well as possible placement of a wound matrix. He was given the risk, benefits, and alternative procedures and consented to procedure. - History Past Medical History: CAD, diabetes, hypertension, hyperlipidemia, PVD Past Surgical History: Other (Left below-knee amputation, endovascular revascularization of left lower extremity, endovascular revascularization of right lower extremity, excisional debridement of left below-knee amputation) Social history: smoking - Allergies and Medications Current Medications: Allergies Jzrdcsa-XMW-ItV Reductase Inhibitor [Xsekxgp-Xen-Vol Reductase Inhibitor] Allergy (Verified 08/13/21 16:40) Headache Home Medications Medication Instructions Recorded Confirmed Last Taken Type Amlodipine Besylate/Benazepril 1 each PO DAILY 08/22/20 08/18/21 08/17/21 09:00 History [Amlodipine-Benazepril 10-40 mg] Dapagliflozin Propanediol [Farxiga] 1 tab PO HS 08/22/20 08/18/21 08/17/21 20:00 History Glimepiride [Amaryl] 4 mg PO QAM 08/22/20 08/18/21 08/17/21 09:00 History Sitagliptin Phos/Metformin HCl 1 each PO BID 08/22/20 08/18/21 08/17/21 17:00 History [Janumet 50-1,000 mg Tablet] hydroCHLOROthiazide [HCTZ] 25 mg PO QDAY 08/22/20 08/18/21 08/17/21 09:00 History Clopidogrel [Plavix] 75 mg PO QDAY #90 tablet 09/03/20 08/18/21 08/17/21 09:00 Rx Rivaroxaban [Xarelto] 2.5 mg PO BID #180 tablet 09/03/20 08/18/21 08/17/21 17:00 Rx Active Medications Acetaminophen (Acetaminophen 500 Mg Tab) 1,000 mg PO PREOP LISA Stop: 08/18/21 20:00 Last Admin: 08/18/21 10:15 Dose: 1,000 mg Cefazolin Sodium (Cefazolin/Sterile Water 2 Gm/20 Ml Syringe) 2 gm IV PREOP NR Stop: 08/18/21 23:00 Hydromorphone HCl (Hydromorphone 1 Mg/1 Ml Inj) 0.5 mg IV Q10MIN PRN PRN Reason: Pain , Severe (7-10) Stop: 08/18/21 20:00 Lactated Ringer's (Lactated Ringers) 1,000 mls @ 100 mls/hr IV DIRECT LISA Stop: 08/18/21 23:59 Last Admin: 08/18/21 10:45 Dose: 100 mls/hr Midazolam HCl (Midazolam 2 Mg/2 Ml Inj) 2 mg IV PREOP NR Stop: 08/18/21 20:00 - Physical exam General appearance: no acute distress Lungs: Normal air movement Breasts: deferred Heart: Regular rate Gastrointestinal: normal Male Genitourinary: deferred Rectal Exam: deferred Extremities: abnormal (Left below-knee amputation with wound VAC in place, right leg with ulcerations of the calf and proximal foot, all wounds are free of overt infection) - Brief post op/procedure progress note Date of procedure: 08/18/21 Pre-op diagnosis: Nonhealing Left Below-Knee Amputation Post-op diagnosis: same Procedure: 1. Excisional Debridement of Bone and Soft Tissue of Left Below-Knee Amputation (Wound Measures 13 x 10 x 1 cm) 2. Placement of 5 x 10 cm and 4 x 7 cm SimpliDerm Hydrated Acellular Dermal Matrix Anesthesia: GETA Surgeon: LUKASZ JARAMILLO Estimated blood loss: minimal Pathology: list (Portions of left tibia and soft tissue were discarded) Specimen disposition: discarded Condition: stable - Disposition Condition at discharge: Good Disposition: 01 HOME / SELF CARE / HOMELESS Short Stay Discharge Plan Wound: per your surgeon's advice (Do not remove dressing until follow-up in the clinic in 1 week.) Follow up with: LUKASZ JARAMILLO MD [Staff Physician] - 08/24/21 1:15 pm Prescriptions: Oxycodone HCl/Acetaminophen [Percocet 7.5/325 mg] 1 each PO Q6HR PRN #30 tab PRN Reason: Pain
[2021-08-18] MEDS ORDERED: SODIUM CHLORIDE 0.9% IRR 1,500 ML BOTTLE IR ONE (13:42)
--- NOTE | 2021-08-18 14:40 | Operative Report ---
Operative Report Operative Report: Date of Procedure: 08/18/2021 Pre-operative Diagnosis: Nonhealing Left Below-Knee Amputation Post-operative Diagnosis: Same Procedure(s): 1. Excisional Debridement of Bone and Soft Tissue of Left Below-Knee Amputation (Wound Measures 13 x 10 x 1 cm) 2. Placement of 5 x 10 cm and 4 x 7 cm SimpliDerm Hydrated Acellular Dermal Matrix Surgeon: Benedicto Osman M.D. Direct Response Consultant: None Anesthesia: General Endotracheal Anesthesia EBL: Minimal Counts: Correct Complications: None Condition: Stable Findings: All remaining tissue appeared healthy and viable with bleeding edges. Specimen: Left tibia and soft tissue from left below-knee amputation was discarded. Indication: The patient is a 61-year-old male with a history of peripheral vascular disease and a left below-knee amputation. He required revision of the amputation secondary to poor wound healing and dehiscence. He now has exposed tibia pr eventing healing of the wound. He is in need of debridement of the wound with possible extracellular matrix placement. He was given the risk, benefits, and alternative procedures and consented to the procedure. Description of Procedure: The patient was brought to the operating room and laid in supine position. After a timeout was performed general endotracheal anesthesia was achieved and his left leg was prepped and draped in normal sterile fashion. A combination of gauze and a curette was used to perform excisional debridement of the soft tissue and ensure that all remaining tissue was healthy and viable. I then used a combination of an oscillating saw and a bur to debride the bone below the skin edges. Once this was done a rasp was used to smooth the bone edges. Hemostasis was achieved with a combination of manual pressure and cautery. Once hemostasis was achieved the wound was copiously irrigated. A 5 x 10 cm and 4 x 7 cm SimpliDerm Matrix was then used to dress the wound and stimulate tissue growth to be healed the wound especially over the tibia. There were secured in place with 2-0 Vicryl, in interrupted fashion, to secure the edges to the skin and 3-0 Chromic to attach the pieces to each other in the middle. The wound was then dressed with Adaptic, aqueous gel, fluffs, and ABD Pad, a Kerlix roll, and a 4 inch Spenser bandage. The patient tolerated the procedure well. All sponge, needle, and instrument counts were correct. The patient was taken to the recovery area in stable condition.
[2021-08-18 16:55] VITALS: BP 156/87
== END 2021-08-18 09:02 | disposition home or self-care (01) ==
LOC: OR 09:01
PROVIDERS: ATTEND Surgery Vascular Surgery
DX: T87.9 Unspecified complications of amputation stump (principal); E11.51 Type 2 diabetes mellitus with diabetic peripheral angiopathy without gangrene; E78.2 Mixed hyperlipidemia; I10 Essential (primary) hypertension; H40.9 Unspecified glaucoma; F17.210 Nicotine dependence, cigarettes, uncomplicated; D64.9 Anemia, unspecified; Z86.718 Personal history of other venous thrombosis and embolism; Z79.899 Other long term (current) drug therapy; Z98.890 Other specified postprocedural states; Y82.8 Other medical devices associated with adverse incidents; Y92.89 Other specified places as the place of occurrence of the external cause
CPT/HCPCS: 27886; 36415; 80048; 82962; 85027; 86850; 86900; 86901; J0690; J1100; J1170; J2250; J2405; J2704; J3010; J7120; Q4116; J3490

== ENCOUNTER 2021-09-11 10:33 | Emergency (ER) | payer BC ==
[2021-09-11] MEDS ORDERED: MORPHINE 4 MG/1 ML INJ IV ONE (11:56)
[2021-09-11] MEDS ORDERED: ONDANSETRON 4 MG/2 ML INJ IV ONE (11:56)
[2021-09-11] MEDS ORDERED: SODIUM CHLORIDE 0.9% 1000 ML 1,000 ML IV ONE (11:57)
--- NOTE | 2021-09-11 12:03 | Emergency Department Report ---
- General Chief Complaint: Wound/Laceration Stated Complaint: BELOW KNEE AMPUTATION LT Time Seen by Provider: 09/11/21 11:39 Source: patient Mode of arrival: Wheelchair Limitations: No Limitations - History of Present Illness Initial Comments: 61-year-old male with a history of peripheral vascular disease and a left below- knee amputation. On August 18 he required revision of the amputation secondary to poor wound healing, dehiscence, and exposed tibia preventing healing of the wound. He received debridement of the wound withextracellular matrix placement. Patient states he has been going to wound care clinic for least 2 months and has wound on both his amputation site and right distal extremity. Today he had debridement in the office of the right distal extremity. There was concerns that his left BKA will need further surgery. His wound care doctor apparently contacted Dr. Osman and was instructed to send patient to the ER. Patient complains of pain rated 6/10 and worse when lying supine. Patient denies fever. Patient also has a history of diabetes and hypertension and is currently on Xarelto with last dose this a.m. - Related Data Home Medications Medication Instructions Recorded Confirmed Last Taken RX: Amlodipine Besylate/Benazepril 1 each PO DAILY 08/22/20 08/18/21 08/17/21 09:00 [Amlodipine-Benazepril 10-40 mg] RX: Dapagliflozin Propanediol 1 tab PO HS 08/22/20 08/18/21 08/17/21 20:00 [Farxiga] RX: Glimepiride [Amaryl] 4 mg PO QAM 08/22/20 08/18/21 08/17/21 09:00 RX: Sitagliptin Phos/Metformin HCl 1 each PO BID 08/22/20 08/18/21 08/17/21 17:00 [Janumet 50-1,000 mg Tablet] RX: hydroCHLOROthiazide [HCTZ] 25 mg PO QDAY 08/22/20 08/18/21 08/17/21 09:00 Previous Rx's Medication Instructions Recorded Last Taken Type RX: Clopidogrel [Plavix] 75 mg PO QDAY #90 tablet 09/03/20 08/17/21 09:00 Rx RX: Rivaroxaban [Xarelto] 2.5 mg PO BID #180 tablet 09/03/20 08/17/21 17:00 Rx Oxycodone HCl/Acetaminophen 1 each PO Q6HR PRN #30 tab 08/18/21 Unknown Rx [Percocet 7.5/325 mg] Allergies Allergy/AdvReac Type Severity Reaction Status Date / Time Dkvoulh-KFL-XsP Reductase Allergy Headache Verified 08/13/21 16:40 Inhibitor [Qkfvsyc-Pep-Pke Reductase Inhibitor] ED Review of Systems ROS: Stated complaint: BELOW KNEE AMPUTATION LT Other details as noted in HPI Comment: All other systems reviewed and negative ED Past Medical Hx - Past Medical History Previous Medical History?: Yes Hx Hypertension: Yes Hx Heart Attack/AMI: No Hx Congestive Heart Failure: No Hx Diabetes: Yes Hx Liver Disease: No Hx Renal Disease: No Hx HIV: No - Social History Smoking Status: Current Every Day Smoker - Medications Home Medications: Home Medications Medication Instructions Recorded Confirmed Last Taken Type RX: Amlodipine Besylate/Benazepril 1 each PO DAILY 08/22/20 08/18/21 08/17/21 09:00 History [Amlodipine-Benazepril 10-40 mg] RX: Dapagliflozin Propanediol 1 tab PO HS 08/22/20 08/18/21 08/17/21 20:00 History [Farxiga] RX: Glimepiride [Amaryl] 4 mg PO QAM 08/22/20 08/18/21 08/17/21 09:00 History RX: Sitagliptin Phos/Metformin HCl 1 each PO BID 08/22/20 08/18/21 08/17/21 17:00 History [Janumet 50-1,000 mg Tablet] RX: hydroCHLOROthiazide [HCTZ] 25 mg PO QDAY 08/22/20 08/18/21 08/17/21 09:00 History RX: Clopidogrel [Plavix] 75 mg PO QDAY #90 tablet 09/03/20 08/18/21 08/17/21 09:00 Rx RX: Rivaroxaban [Xarelto] 2.5 mg PO BID #180 tablet 09/03/20 08/18/21 08/17/21 17:00 Rx Oxycodone HCl/Acetaminophen 1 each PO Q6HR PRN #30 tab 08/18/21 Unknown Rx [Percocet 7.5/325 mg] ED Physical Exam - General Limitations: No Limitations - Other Other exam information: General: No acute distress Head: Atraumatic Eyes: normal appearance ENT: Moist mucous membranes Neck: Normal appearance, no midline tenderness Chest: Clear to auscultation bilaterally CV: Tachycardic regular Abdomen: Soft, normal bowel sounds, nontender, nondistended, no rebound or guarding Back: Normal inspection Extremity: Left BKA with wound dressing in place right lower extremity dressing in place with bleeding on the lateral ankle/distal extremity through dressing Neuro: Alert O x 3, no facial asymmetry, speech clear, no gross motor sensory deficit Psych: Appropriate behavior Skin: No rash ED Course Vital Signs 09/11/21 09/11/21 09/11/21 10:41 11:37 11:45 Temperature 98.5 F Pulse Rate 117 H 115 H Respiratory 20 17 Rate Blood Pressure 125/71 Blood Pressure 125/69 [Left] O2 Sat by Pulse 98 100 100 Oximetry 09/11/21 09/11/21 09/11/21 11:57 11:58 12:01 Temperature Pulse Rate 111 H 112 H Respiratory 21 17 Rate Blood Pressure 127/68 Blood Pressure 127/68 [Left] O2 Sat by Pulse 100 100 100 Oximetry 09/11/21 09/11/21 12:02 13:13 Temperature 97.9 F Pulse Rate 90 Respiratory 22 19 Rate Blood Pressure Blood Pressure 134/75 [Left] O2 Sat by Pulse 100 Oximetry - Reevaluation(s) Reevaluation #1: 09/11/21 14:03 pts HR improved after pain meds, no signs of sepsis on labs - Consultations Consultation #1: 09/11/21 14:02 Dr Osman came to ED to evaluate pt, examined wound and states pt may be discharged ED Medical Decision Making - Lab Data Result diagrams: 09/11/21 12:21 09/11/21 12:21 Lab Results 09/11/21 09/11/21 09/11/21 Range/Units 12:20 12:21 12:21 WBC 7.3 (4.5-11.0) K/mm3 RBC 3.86 (3.65-5.03) M/mm3 Hgb 9.0 L (11.8-15.2) gm/dl Hct 28.6 L (35.5-45.6) % MCV 74 L (84-94) fl MCH 23 L (28-32) pg MCHC 32 (32-34) % RDW 18.9 H (13.2-15.2) % Plt Count 486 H (140-440) K/mm3 Lymph % (Auto) 11.7 L (13.4-35.0) % Kimball % (Auto) 7.3 (0.0-7.3) % Eos % (Auto) 0.5 (0.0-4.3) % Baso % (Auto) 0.3 (0.0-1.8) % Lymph # (Auto) 0.9 L (1.2-5.4) K/mm3 Kimball # (Auto) 0.5 (0.0-0.8) K/mm3 Eos # (Auto) 0.0 (0.0-0.4) K/mm3 Baso # (Auto) 0.0 (0.0-0.1) K/mm3 Seg Neutrophils % 80.2 H (40.0-70.0) % Seg Neutrophils # 5.9 (1.8-7.7) K/mm3 PT 15.0 H (12.2-14.9) Sec. INR 1.06 (0.87-1.13) APTT 35.1 (24.2-36.6) Sec. Sodium (137-145) mmol/L Potassium (3.6-5.0) mmol/L Chloride (98-107) mmol/L Carbon Dioxide (22-30) mmol/L Anion Gap mmol/L BUN (9-20) mg/dL Creatinine (0.8-1.3) mg/dL Estimated GFR ml/min BUN/Creatinine Ratio % Glucose (75-100) mg/dL Calcium (8.4-10.2) mg/dL Blood Type B POSITIVE Antibody Screen Negative 09/11/21 Range/Units 12:21 WBC (4.5-11.0) K/mm3 RBC (3.65-5.03) M/mm3 Hgb (11.8-15.2) gm/dl Hct (35.5-45.6) % MCV (84-94) fl MCH (28-32) pg MCHC (32-34) % RDW (13.2-15.2) % Plt Count (140-440) K/mm3 Lymph % (Auto) (13.4-35.0) % Kimball % (Auto) (0.0-7.3) % Eos % (Auto) (0.0-4.3) % Baso % (Auto) (0.0-1.8) % Lymph # (Auto) (1.2-5.4) K/mm3 Kimball # (Auto) (0.0-0.8) K/mm3 Eos # (Auto) (0.0-0.4) K/mm3 Baso # (Auto) (0.0-0.1) K/mm3 Seg Neutrophils % (40.0-70.0) % Seg Neutrophils # (1.8-7.7) K/mm3 PT (12.2-14.9) Sec. INR (0.87-1.13) APTT (24.2-36.6) Sec. Sodium 135 L (137-145) mmol/L Potassium 3.7 (3.6-5.0) mmol/L Chloride 99.5 (98-107) mmol/L Carbon Dioxide 22 (22-30) mmol/L Anion Gap 17 mmol/L BUN 13 (9-20) mg/dL Creatinine 0.4 L (0.8-1.3) mg/dL Estimated GFR > 60 ml/min BUN/Creatinine Ratio 33 % Glucose 127 H (75-100) mg/dL Calcium 9.7 (8.4-10.2) mg/dL Blood Type Antibody Screen - Medical Decision Making 61-year-old male sent to the ER to have his left BKA site evaluated Dr. Osman. Dawson examined patient and states he can be discharged. Initial tachycardia improved with pain medication. No signs of sepsis. Patient be discharged Critical Care Time: No Critical care attestation.: If time is entered above; I have spent that time in minutes in the direct care of this critically ill patient, excluding procedure time. ED Disposition Clinical Impression: BKA stump complication, PAD (peripheral artery disease) Disposition: 01 HOME / SELF CARE / HOMELESS Is pt being admited?: No Does the pt Need Aspirin: No Condition: Stable Instructions: Wound Care, Adult, Peripheral Vascular Disease, [id number] Additional Instructions: Continue your medication as prescribed. Follow-up with Dr. Osman in your wound care provider. Return if symptoms worsen as indicated by your discharge instructions. Referrals: LUKASZ OSMAN MD [Staff Physician] - 7-10 days Time of Disposition: 14:05
[2021-09-11 13:15] VITALS: BP 134/75
[2021-09-11 13:22] LABS: Basophils % (Auto) 0.3 % (0.0-1.8); Eosinophils % (Auto) 0.5 % (0.0-4.3); Hematocrit 28.6 % (35.5-45.6); Lymphocytes # (Auto) 0.9 K/mm3 (1.2-5.4); Lymphocytes % (Auto) 11.7 % (13.4-35.0); Mean Corpuscular HGB Conc 32 % (32-34); Mean Corpuscular Volume 74 fl (84-94); Monocytes # (Auto) 0.5 K/mm3 (0.0-0.8); Monocytes % (Auto) 7.3 % (0.0-7.3); Platelet Count 486 K/mm3 (140-440); Red Blood Count 3.86 M/mm3 (3.65-5.03); Red Cell Distribution Width 18.9 % (13.2-15.2)
[2021-09-11 13:39] LABS: INR 1.06 (0.87-1.13)
[2021-09-11 13:40] LABS: Partial Thromboplastin Time 35.1 Sec. (24.2-36.6)
[2021-09-11 13:43] LABS: Blood Urea Nitrogen 13 mg/dL (9-20); Calcium 9.7 mg/dL (8.4-10.2); Hemolysis Index 0
[2021-09-11 13:53] LABS: BUN/Creatinine Ratio 33
--- NOTE | 2021-09-11 14:43 | Event Note ---
Date: 09/11/21 Evaluated the left BKA stump. The wound is clean without overt signs of infection or ischemic changes. The previously placed wound matrix is in placed and adherent to the underlying tissue. There is some desiccation of the wound however no drainage or purulence. I placed a xeroform gauze over the wound matrix and then covered this with aqueous gel to rehydrate the matrix. I dressed with fluffs, a kerlix roll, and a 4" caitlin bandage. He can be discharged home and I will have the him follow up next ,in the office, for a dressing change.
== END 2021-09-11 15:00 | disposition home or self-care (01) ==
LOC: ED 10:33
DX: Z89.519 Acquired absence of unspecified leg below knee (principal); I73.9 Peripheral vascular disease, unspecified; I10 Essential (primary) hypertension; E11.9 Type 2 diabetes mellitus without complications; F17.200 Nicotine dependence, unspecified, uncomplicated; Z91.09 Other allergy status, other than to drugs and biological substances; Z79.899 Other long term (current) drug therapy
CPT/HCPCS: 36415; 80048; 85025; 85610; 85730; 86850; 86900; 86901; 96361; 96374; 96375; 99283; J2270; J2405; J7030

== ENCOUNTER 2022-01-22 06:16 | Inpatient (IN) | payer BC ==
--- NOTE | 2022-01-22 12:27 | Emergency Department Report ---
ED Extremity Problem HPI - General Chief complaint: Wound/Laceration Stated complaint: WOUND CHECK RT LEG Time Seen by Provider: 01/22/22 11:35 Source: patient, family Mode of arrival: Wheelchair Limitations: No Limitations - History of Present Illness Initial comments: 62-year-old male with a past medical history of PAD, left BKA, hypertension, diabetes, and tobacco use presents to the hospital with complaints of maggots to right lower extremity wound. Patient has a history of chronic PAD and is currently undergoing wound care of his right foot since June and left BKA stump for least 9 months. Patient receives wound care at home twice a week. Today a new nurse saw a maggot on the blue pad which wrapped around his right leg and therefore he was advised to come to the hospital for evaluation. Patient has had black discoloration of the toes of his right foot and has been told by Dr. Osman around that his foot was and needed to be amputated. Patient did not want his foot amputated prior to his birthdate on [birth year]. Patient states he called the office on the and attempt to schedule his surgery but that he has not been scheduled as of yet. Patient is inquiring if he will be admitted today for amputation. He denies pain or fever. He continues to smoke cigarettes. He had been compliant with his Xarelto and Plavix but did not have a dose today - Related Data Home Medications Medication Instructions Recorded Confirmed Last Taken Amlodipine Besylate/Benazepril 1 each PO DAILY 08/22/20 08/18/21 08/17/21 09:00 [Amlodipine-Benazepril 10-40 mg] Dapagliflozin Propanediol [Farxiga] 1 tab PO HS 08/22/20 08/18/21 08/17/21 20:00 Glimepiride [Amaryl] 4 mg PO QAM 08/22/20 08/18/21 08/17/21 09:00 Sitagliptin Phos/Metformin HCl 1 each PO BID 08/22/20 08/18/21 08/17/21 17:00 [Janumet 50-1,000 mg Tablet] hydroCHLOROthiazide [HCTZ] 25 mg PO QDAY 08/22/20 08/18/21 08/17/21 09:00 Previous Rx's Medication Instructions Recorded Last Taken Type Clopidogrel [Plavix] 75 mg PO QDAY #90 tablet 09/03/20 08/17/21 09:00 Rx Rivaroxaban [Xarelto] 2.5 mg PO BID #180 tablet 09/03/20 08/17/21 17:00 Rx Oxycodone HCl/Acetaminophen 1 each PO Q6HR PRN #30 tab 08/18/21 Unknown Rx [Percocet 7.5/325 mg] Allergies Allergy/AdvReac Type Severity Reaction Status Date / Time Wwwgppz-ZKG-RlV Reductase Allergy Headache Verified 08/13/21 16:40 Inhibitor [Lwmioxb-Ppj-Wws Reductase Inhibitor] ED Review of Systems ROS: Stated complaint: WOUND CHECK RT LEG Other details as noted in HPI Comment: All other systems reviewed and negative ED Past Medical Hx - Past Medical History Previous Medical History?: Yes Hx Hypertension: Yes Hx Heart Attack/AMI: No Hx Congestive Heart Failure: No Hx Diabetes: Yes Hx Liver Disease: No Hx Renal Disease: No Hx HIV: No - Surgical History Past Surgical History?: Yes Additional Surgical History: LBKA - Social History Smoking Status: Unknown if ever smoked Substance Use Type: None - Medications Home Medications: Home Medications Medication Instructions Recorded Confirmed Last Taken Type Amlodipine Besylate/Benazepril 1 each PO DAILY 08/22/20 08/18/21 08/17/21 09:00 History [Amlodipine-Benazepril 10-40 mg] Dapagliflozin Propanediol [Farxiga] 1 tab PO HS 08/22/20 08/18/21 08/17/21 20:00 History Glimepiride [Amaryl] 4 mg PO QAM 08/22/20 08/18/21 08/17/21 09:00 History Sitagliptin Phos/Metformin HCl 1 each PO BID 08/22/20 08/18/21 08/17/21 17:00 History [Janumet 50-1,000 mg Tablet] hydroCHLOROthiazide [HCTZ] 25 mg PO QDAY 08/22/20 08/18/21 08/17/21 09:00 History Clopidogrel [Plavix] 75 mg PO QDAY #90 tablet 09/03/20 08/18/21 08/17/21 09:00 Rx Rivaroxaban [Xarelto] 2.5 mg PO BID #180 tablet 09/03/20 08/18/21 08/17/21 17:00 Rx Oxycodone HCl/Acetaminophen 1 each PO Q6HR PRN #30 tab 08/18/21 Unknown Rx [Percocet 7.5/325 mg] ED Physical Exam - General Limitations: No Limitations - Other Other exam information: General: No acute distress Head: Atraumatic Eyes: normal appearance ENT: Moist mucous membranes Neck: Normal appearance, no midline tenderness Chest: Clear to auscultation bilaterally CV: Regular rate and rhythm Abdomen: Soft, normal bowel sounds, nontender, nondistended, no rebound or guarding Back: Normal inspection Extremity: Patient has dry gangrene to the toes of the right foot with an open leg wound from the foot to the distal leg with malodorous yellow exudate and drainage. Maggots noted. Left lower extremity BKA large wound with yellow yellow exudate. Neuro: Alert O x 3, no facial asymmetry, speech clear, no gross motor sensory deficit Psych: Appropriate behavior ED Course Vital Signs 01/22/22 01/22/22 01/22/22 06:21 12:25 14:43 Temperature 98.4 F 98.5 F Pulse Rate 117 H 98 H 98 H Respiratory 20 17 18 Rate Blood Pressure 111/69 Blood Pressure 137/65 133/79 [Left] O2 Sat by Pulse 100 99 99 Oximetry 01/22/22 15:44 Temperature Pulse Rate 96 H Respiratory 18 Rate Blood Pressure Blood Pressure 152/84 [Left] O2 Sat by Pulse 99 Oximetry - Consultations Consultation #1: 01/22/22 15:30 DR Osman page at 14:30. He called back at this time. Will consult on patient ED Medical Decision Making - Lab Data Result diagrams: 01/22/22 12:31 01/22/22 12:31 Lab Results 01/22/22 01/22/22 Range/Units 12:31 12:31 WBC 6.5 (4.5-11.0) K/mm3 RBC 4.36 (3.65-5.03) M/mm3 Hgb 10.0 L (11.8-15.2) gm/dl Hct 31.5 L (35.5-45.6) % MCV 72 L (84-94) fl MCH 23 L (28-32) pg MCHC 32 (32-34) % RDW 26.5 H (13.2-15.2) % Plt Count 500 H (140-440) K/mm3 Add Manual Diff Complete Total Counted 100 Seg Neuts % (Manual) 83.0 H (40.0-70.0) % Band Neutrophils % 0 % Lymphocytes % (Manual) 6.0 L (13.4-35.0) % Reactive Lymphs % (Man) 0 % Monocytes % (Manual) 10.0 H (0.0-7.3) % Eosinophils % (Manual) 0 (0.0-4.3) % Basophils % (Manual) 1.0 (0.0-1.8) % Metamyelocytes % 0 % Myelocytes % 0 % Promyelocytes % 0 % Blast Cells % 0 % Nucleated RBC % Not Reportable Seg Neutrophils # Man 5.4 (1.8-7.7) K/mm3 Band Neutrophils # 0.0 K/mm3 Lymphocytes # (Manual) 0.4 L (1.2-5.4) K/mm3 Abs React Lymphs (Man) 0.0 K/mm3 Monocytes # (Manual) 0.7 (0.0-0.8) K/mm3 Eosinophils # (Manual) 0.0 (0.0-0.4) K/mm3 Basophils # (Manual) 0.1 (0.0-0.1) K/mm3 Metamyelocytes # 0.0 K/mm3 Myelocytes # 0.0 K/mm3 Promyelocytes # 0.0 K/mm3 Blast Cells # 0.0 K/mm3 WBC Morphology Not Reportable Hypersegmented Neuts Not Reportable Hyposegmented Neuts Not Reportable Hypogranular Neuts Not Reportable Smudge Cells Not Reportable Toxic Granulation Not Reportable Toxic Vacuolation Not Reportable Dohle Bodies Not Reportable Pelger-Huet Anomaly Not Reportable Radha Rods Not Reportable Platelet Estimate Consistent w auto Clumped Platelets Not Reportable Plt Clumps, EDTA Not Reportable Large Platelets Not Reportable Giant Platelets Not Reportable Platelet Satelliting Not Reportable Plt Morphology Comment Not Reportable RBC Morphology Not Reportable Dimorphic RBCs Not Reportable Polychromasia Not Reportable Hypochromasia 1+ Poikilocytosis Not Reportable Anisocytosis 1+ Microcytosis Not Reportable Macrocytosis Not Reportable Spherocytes Not Reportable Pappenheimer Bodies Not Reportable Sickle Cells Not Reportable Target Cells Few Tear Drop Cells Not Reportable Ovalocytes Not Reportable Helmet Cells Not Reportable [place] Bodies Not Reportable Edmondson Rings Not Reportable Benita Cells Not Reportable Bite Cells Not Reportable Crenated Cell Not Reportable Elliptocytes Not Reportable Acanthocytes (Spur) Not Reportable Rouleaux Not Reportable Hemoglobin C Crystals Not Reportable Schistocytes Not Reportable Malaria parasites Not Reportable ESR 96 (0-20) mm/Hr Isiah Bodies Not Reportable Hem Pathologist Commnt No Sodium 135 L (137-145) mmol/L Potassium 3.6 (3.6-5.0) mmol/L Chloride 96.5 L (98-107) mmol/L Carbon Dioxide 22 (22-30) mmol/L Anion Gap 20 mmol/L BUN 7 L (9-20) mg/dL Creatinine 0.3 L (0.8-1.3) mg/dL Estimated GFR > 60 ml/min BUN/Creatinine Ratio 23 % Glucose 134 H (75-100) mg/dL Calcium 9.6 (8.4-10.2) mg/dL - Radiology Data Radiology results: report reviewed RIGHT FOOT 2 VIEW(S) INDICATION / CLINICAL INFORMATION: right foot and leg infection COMPARISON: None available. FINDINGS: BONES / JOINT(S): No acute fracture or subluxation. No significant arthritis. SOFT TISSUES: Extensive subcutaneous emphysema concerning for aggressive i nfectious process. ADDITIONAL FINDINGS: None. RIGHT TIBIA-FIBULA 2 VIEW(S) INDICATION / CLINICAL INFORMATION: right foot and leg infection COMPARISON: None available. FINDINGS: BONES / JOINT(S): No acute fracture or subluxation. No significant arthritis. SOFT TISSUES: There is subcutaneous emphysema noted in the distal aspect of the right leg. There is extensive calcific atherosclerosis. ADDITIONAL FINDINGS: None. 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 Gas gangrene noted on x-ray studies. Patient will likely need amputation. Patient is malodorous drainage with mild tachycardia therefore IV antibiotics initiated. Case discussed with Dr. Osman his vascular surgeon who will consult on the patient determine if amputation is necessary Critical Care Time: No Critical care attestation.: If time is entered above; I have spent that time in minutes in the direct care of this critically ill patient, excluding procedure time. ED Disposition Clinical Impression: Gas gangrene, Gangrene of right foot, Ulceration of below knee amputation stump, Smoker, PAD (peripheral artery disease) Disposition: 09 ADMITTED INPATIENT Is pt being admited?: Yes Condition: Stable Time of Disposition: 16:29
[2022-01-22 13:09] LABS: Hematocrit 31.5 % (35.5-45.6); Mean Corpuscular HGB Conc 32 % (32-34); Mean Corpuscular Volume 72 fl (84-94); Platelet Count 500 K/mm3 (140-440); Red Blood Count 4.36 M/mm3 (3.65-5.03)
[2022-01-22 13:15] LABS: Blood Urea Nitrogen 7 mg/dL (9-20); Calcium 9.6 mg/dL (8.4-10.2); Hemolysis Index 3; Red Cell Distribution Width 26.5 % (13.2-15.2)
[2022-01-22 13:40] LABS: BUN/Creatinine Ratio 23
[2022-01-22] MEDS ORDERED: MORPHINE 4 MG/1 ML INJ IV ONE (13:46)
[2022-01-22] MEDS ORDERED: ONDANSETRON 4 MG/2 ML INJ IV ONE (13:46)
[2022-01-22 13:54] LABS: Erythrocyte Sedimentation Rate 96 mm/Hr (0-20)
[2022-01-22 13:56] LABS: Eosinophils % (Manual) 0 % (0.0-4.3); Total Cells Counted 100
[2022-01-22 13:57] LABS: Anisocytosis 1+; Hypochromasia 1+; Platelet Estimate Consistent w Auto; Target Cells Few
[2022-01-22] MEDS ORDERED: HYDROcodone/ACETAMINOPHEN 5-325 MG TAB PO ONE (14:21)
[2022-01-22] MEDS ORDERED: SODIUM CHLORIDE 0.9% 1000 ML 1,000 ML IV ONE (14:21)
[2022-01-22] MEDS ORDERED: VANCOMYCIN 1,250 MG in SODIUM CHLORIDE 0.9% 500 ML 500 ML IV ONE (15:19)
--- NOTE | 2022-01-22 16:01 | XRay Report ---
RIGHT FOOT 2 VIEW(S) INDICATION / CLINICAL INFORMATION: right foot and leg infection COMPARISON: None available. FINDINGS: BONES / JOINT(S): No acute fracture or subluxation. No significant arthritis. SOFT TISSUES: Extensive subcutaneous emphysema concerning for aggressive infectious process. ADDITIONAL FINDINGS: None. RIGHT TIBIA-FIBULA 2 VIEW(S) INDICATION / CLINICAL INFORMATION: right foot and leg infection COMPARISON: None available. FINDINGS: BONES / JOINT(S): No acute fracture or subluxation. No significant arthritis. SOFT TISSUES: There is subcutaneous emphysema noted in the distal aspect of the right leg. There is e xtensive calcific atherosclerosis. ADDITIONAL FINDINGS: None. Signer Name: Ramez Paiz DO Signed: 01/22/2022 3:57 PM Workstation Name: [id number]
[2022-01-22] MEDS ORDERED: CEFEPIME/NS 2 GM/100 ML 2 GM/100 ML BAG IV ONE (16:12)
[2022-01-22] MEDS ORDERED: ACETAMINOPHEN 325 MG TAB PO PRN (16:20)
[2022-01-22] MEDS ORDERED: HYDROmorphone 0.5 MG/0.5 ML INJ IV PRN (16:20)
[2022-01-22] MEDS ORDERED: ONDANSETRON 4 MG/2 ML INJ IV PRN (16:20)
[2022-01-22] MEDS ORDERED: oxyCODONE /ACETAMINOPHEN 5-325MG TAB PO PRN (16:20)
[2022-01-22] MEDS ORDERED: ALBUTEROL 2.5 MG/3 ML NEBU IH PRN (16:20)
--- NOTE | 2022-01-22 16:20 | History and Physical Report ---
History of Present Illness Chief complaint: My leg smells bad History of present illness: 62 YO Male with Severe PVD on Therapeutic anticoagulation, HTN, DM, Nicotine Dependence presents ED for evaluation. Patient reports "my leg smells bad". Patient states he has experienced a foul-smelling odor from his right leg over the past several days. Patient was seen and evaluated by his home care nurse and was found to have a maggot infestation to his right leg. Patient transported to [facility] via private vehicle for further care and evaluation of the aforementioned symptoms. Patient was seen and evaluated emergency department. All lab and imaging studies reviewed. Patient found to have right lower extremity cellulitis complicated by gangrene. Patient admitted to medical floor and initiated on IV antibiotic therapy. Wound care team consulted in ED. Vascular surgery team consulted in ED. Patient denies fever, chills, chest pain, palpitation, productive cough, trauma, skin rash, recent contact, known exposure to COVID-19. No prior admission for review. All medication listed at time of admission has been reconciled. Advanced care planning conducted in ED. Past History Past Medical History: diabetes, hypertension, PVD Past Surgical History: Other (Left BKA) Social history: single, smoking Family history: diabetes, hypertension Medications and Allergies Allergies Allergy/AdvReac Type Severity Reaction Status Date / Time Pmmozov-IDJ-JeC Reductase Allergy Headache Verified 08/13/21 16:40 Inhibitor [Ngnxeli-Zka-Hdi Reductase Inhibitor] Home Medications Medication Instructions Recorded Confirmed Last Taken Type Amlodipine Besylate/Benazepril 1 each PO DAILY 08/22/20 08/18/21 08/17/21 09:00 History [Amlodipine-Benazepril 10-40 mg] Dapagliflozin Propanediol [Farxiga] 1 tab PO HS 08/22/20 08/18/21 08/17/21 20:00 History Glimepiride [Amaryl] 4 mg PO QAM 08/22/20 08/18/21 08/17/21 09:00 History Sitagliptin Phos/Metformin HCl 1 each PO BID 08/22/20 08/18/21 08/17/21 17:00 History [Janumet 50-1,000 mg Tablet] hydroCHLOROthiazide [HCTZ] 25 mg PO QDAY 08/22/20 08/18/21 08/17/21 09:00 History Clopidogrel [Plavix] 75 mg PO QDAY #90 tablet 09/03/20 08/18/21 08/17/21 09:00 Rx Rivaroxaban [Xarelto] 2.5 mg PO BID #180 tablet 09/03/20 08/18/21 08/17/21 17:00 Rx Oxycodone HCl/Acetaminophen 1 each PO Q6HR PRN #30 tab 08/18/21 Unknown Rx [Percocet 7.5/325 mg] Active Meds: Active Medications Vancomycin HCl 1,250 mg/ (Sodium Chloride) 525 mls @ 333 mls/hr IV ONCE ONE; Protocol Stop: 01/22/22 16:53 Cefepime HCl (Cefepime/Ns 2 Gm/100 Ml) 2 gm in 100 mls @ 200 mls/hr IV ONCE ONE; Protocol Stop: 01/22/22 16:41 Review of Systems Constitutional: no weight loss, no weight gain, no fever, no chills Ears, nose, mouth and throat: no ear pain, no ear discharge, no nose pain, no nasal congestion, no nasal discharge, no sinus pressure Cardiovascular: no chest pain, no edema Respiratory: no cough with sputum, no excessive sputum, no shortness of breath Gastrointestinal: no abdominal pain, no nausea, no diarrhea Genitourinary Male: no hematuria, no flank pain, no discharge, no urinary frequency, no urinary hesitancy Rectal: no pain, no incontinence, no bleeding Musculoskeletal: no neck stiffness, no neck pain, no shooting arm pain, no arm numbness/tingling, no low back pain, no shooting leg pain Integumentary: foot/leg ulcers, other (Foul-smelling discharge from right leg), no rash Neurological: no head injury, no paralysis, no weakness, no parathesias, no tingling, no seizures, no tremors, no ataxia Psychiatric: no anxiety, no memory loss, no insomnia, no change in appetite, no suicidal ideation Endocrine: no cold intolerance, no heat intolerance, no excessive thirst, no polyuria, no nocturia, no excessive sweating Hematologic/Lymphatic: no easy bruising, no easy bleeding Exam - Constitutional Vitals: Temp Pulse Resp BP Pulse Ox 98.5 F 96 H 18 152/84 99 01/22/22 12:25 01/22/22 15:44 01/22/22 15:44 01/22/22 15:44 01/22/22 15:44 General appearance: Present: mild distress - EENT Eyes: Present: PERRL ENT: hearing intact, clear oral mucosa - Neck Neck: Present: supple, normal ROM - Respiratory Respiratory effort: normal Respiratory: bilateral: CTA - Cardiovascular Heart Sounds: Present: S1 & S2. Absent: rub, click - Extremities Extremities: pulses symmetrical Extremity abnormal: edema, ulceration, erythema, pulses diminished Peripheral Pulses: within normal limits - Abdominal General gastrointestinal: Present: soft, non-tender, non-distended, normal bowel sounds Male genitourinary: Present: normal - Integumentary Integumentary: Present: clear, warm, dry - Musculoskeletal Musculoskeletal: gait normal, strength equal bilaterally - Psychiatric Psychiatric: appropriate mood/affect, intact judgment & insight - Neurologic Neurologic: CNII-XII intact, moves all extremities Results - Labs CBC & Chem 7: 01/22/22 12:31 01/22/22 12:31 Labs: Abnormal lab results 01/22/22 01/22/22 Range/Units 12:31 12:31 Hgb 10.0 L (11.8-15.2) gm/dl Hct 31.5 L (35.5-45.6) % MCV 72 L (84-94) fl MCH 23 L (28-32) pg RDW 26.5 H (13.2-15.2) % Plt Count 500 H (140-440) K/mm3 Seg Neuts % (Manual) 83.0 H (40.0-70.0) % Lymphocytes % (Manual) 6.0 L (13.4-35.0) % Monocytes % (Manual) 10.0 H (0.0-7.3) % Lymphocytes # (Manual) 0.4 L (1.2-5.4) K/mm3 Sodium 135 L (137-145) mmol/L Chloride 96.5 L (98-107) mmol/L BUN 7 L (9-20) mg/dL Creatinine 0.3 L (0.8-1.3) mg/dL Glucose 134 H (75-100) mg/dL Assessment and Plan - Patient Problems (1) Cellulitis of right lower extremity Current Visit: Yes Status: Acute Plan to address problem: IV antibiotic therapy, wound care, supportive care, vascular surgery team consu lted. Patient found to have severe peripheral vascular disease with high likelihood for need for right lower extremity amputation. (2) Gangrene of right foot Current Visit: Yes Status: Acute Plan to address problem: Vascular surgery team consulted. Patient will likely require right lower extremity amputation. As per vascular surgery team. Continue medical management, pain control, supportive care. (3) PAD (peripheral artery disease) Current Visit: Yes Status: Chronic Plan to address problem: Supportive care, continue medical management. (4) Nicotine dependence Current Visit: No Status: Acute Qualifiers: Nicotine product type: cigarettes Substance use status: in withdrawal Qualified Code(s): F17.213 - Nicotine dependence, cigarettes, with withdrawal Plan to address problem: Smoke cessation counseled, supportive care, behavior change counseling, +15 minutes. (5) Hypertension Current Visit: No Status: Chronic Qualifiers: Hypertension type: primary hypertension Qualified Code(s): I10 - Essential (primary) hypertension Plan to address problem: Monitor blood pressure every shift, continue medical management. (6) DVT prophylaxis Current Visit: Yes Status: Acute Plan to address problem: SCDs bilateral extremities on bed (7) Advance care planning Current Visit: Yes Status: Acute Plan to address problem: Disease education conducted, care plan discussed, diagnoses discussed, prognosis discussed, and the need for probable surgery discussed. Patient knowledges un derstanding care plan. +30 minutes. (8) Preventative health care Current Visit: Yes Status: Acute Plan to address problem: Patient counseled regarding risk factor reduction, smoking cessation, wound care . +30 minutes.
[2022-01-22 22:02] VITALS: BP 131/73
== END 2022-01-22 22:59 | disposition still patient (30) | DRG 300 ==
LOC: ED 06:16 → 3A 16:20
PROVIDERS: ADMIT Internal Medicine; ATTEND Internal Medicine
DX: E11.52 Type 2 diabetes mellitus with diabetic peripheral angiopathy with gangrene (principal); I96 Gangrene, not elsewhere classified; F17.200 Nicotine dependence, unspecified, uncomplicated; T87.89 Other complications of amputation stump; I10 Essential (primary) hypertension
CPT/HCPCS: 36415; 80048; 85007; 85025; 85652; 87040; G0378; J0692; J2270; J2405; J3370; J7030; J7040